=== PATIENT | male | born 1955 | race African-American/Black ===

== ENCOUNTER 2021-08-13 10:04 | Emergency (ER) | payer MEDICARE, MEDICAID, SELFPAY ==
[2021-08-13 10:50] VITALS: BP 156/94; PULSE 78; RESP 19; TEMP 37; O2SAT 97; BMI 28.8
--- NOTE | 2021-08-13 11:22 | HMH.EDUTC ---
[facility] [place] Clinical Impression: COVID-19 virus test result unknown Disposition: Home, Self-Care Condition on Discharge: Good Instructions: COVID-19: Testing and Tracing Additional Instructions: covid swab was sent to lab, call later tomorrow for results. self isolate until test results are known to be negative No sign of a bacterial infection. Likely viral. Viruses can take 7-14 days to run their course. Nasal saline and bulb syringe or nose Leora to remove nasal drainage to help with nasal congestion. Hard to eat, drink, sleep with nasal congestion so important to keep this cleaned out. Monitor temp. Tylenol or Motrin as needed for pain or fever Encourage fluids, water, Gatorade, Powerade, Pedialyte if /toddler/child Warm salt water gargles Warm fluids Sore throat lozenges Sleep elevated Humidifier/vaporizer Follow-up immediately for new or worsening symptoms or no noticeable improvement over the next 48-72 hours. Referrals: Francisco Bonilla [Primary Care Provider] - Time of Disposition: 11:25 Medical Decision Making - Phillip Inquiry Pt receiving controlled substance: No Vital Signs: 08/13/21 11:17 Temperature 98.6 F Temperature Source Oral Pulse Rate [Right Brachial] 78 Respiratory Rate 19 Blood Pressure [Right Arm] 156/94 H Blood Pressure Mean [Right Arm] 114 Blood Pressure Source [Right Arm] Automatic Cuff Blood Pressure Position [Right Arm] Sitting 02 Sat by Pulse Oximetry 97 Oxygen Delivery Method Room Air Orders (Tests/Meds): ORDERS Category Date Time Status Covid-19 Nasal PCR ([facility]) Routine Lab 08/13/21 11:20 Received [facility] [place] - General Chief complaint: Urgent Treatment Center Stated complaint: covid symptoms Time Seen by Provider: 08/13/21 11:22 Mode of Arrival: Ambulatory Source of Information: Patient Limitations: No Limitations Description of Symptoms (Recalled from Triage Doc. by RN): PATIENT C/O COUGH AND BODY ACHES SINCE THIS MORNING HEENT Symptoms (Recalled from RN notes): No Resp Symptoms (Recalled from RN notes): Yes Skin Symptoms (Recalled from RN notes): No MS Symptoms (Recalled from RN notes): No Functional Status (Recalled from RN notes): WNL - History of Present Illness Provider Complaint: 66 yr old male presnets for cough and body aches that started this am - Worker's Comp Is this a Worker's Comp case?: No [facility] History - Hepatitis A Screen Drug use history?: No High risk sexual behaviors?: No History of sexually transmitted infection?: No Currently employed?: No Childcare worker?: No Do you have indoor plumbing?: Yes Do you have electricity?: Yes Attestation statement:: This patient has been screened for Hepatitis A risk factors. I have reviewed the patient's past medical history: Yes ROS Obtained: Yes Systems reviewed as appropriate & no additional complaints - Constitutional Constitutional: Reports system reviewed and no additional complaints, except as docu, Reports body ache, Denies fatigue, Denies fever(s) - Eyes Eyes: Reports system reviewed and no additional complaints, except as docu, Denies blind spots - ENT Ears, Nose, Mouth, and Throat: Reports system reviewed and no additional complaints, except as docu, Reports nasal congestion, Denies sore throat - Cardiovascular Cardiovascular: Reports system reviewed and no additional complaints, except as docu, Denies chest pain - Respiratory Respiratory: Reports system reviewed and no additional complaints, except as docu, Reports cough - Gastrointestinal Gastrointestingal: Reports: system reviewed and no additional complaints, except as docu. Denies: abdominal pain - Musculoskeletal Musculoskeletal: Reports system reviewed and no additional complaints, except as docu, Denies joint pain - Integumentary/Breasts Skin/Breast: Reports system reviewed and no additional complaints, except as docu, Denies rash - Neurologic Neurologic: Reports system reviewed and no additional com
[2021-08-13 11:30] LABS: UTC Influenza A Antigen Negative (Negative); UTC Influenza B Antigen Negative (Negative)
[2021-08-13 11:32] VITALS: BP 130/86; PULSE 78; RESP 19; TEMP 37; O2SAT 97
== END 2021-08-13 12:25 | disposition home or self-care (01) ==
PROVIDERS: Emergency Provider Nurse Practitioner Family; PCP Family Medicine
DX: J02.9 Acute pharyngitis, unspecified (principal); R05.1 Acute cough; Z20.822 Contact with and (suspected) exposure to COVID-19
CPT/HCPCS: 87804; 99202; C9803; G0463; U0003; U0005

== ENCOUNTER 2025-06-04 16:22 | Outpatient (CLI) | payer MEDICARE, MEDICAID, SELFPAY ==
--- NOTE | 2025-06-04 16:25 | XR_ITS ---
FINAL REPORT CLINICAL HISTORY: cough,SOA pt states hx of respiratory infection FINDINGS: 2 views of the chest were obtained . The heart is normal in size. The mediastinum is within normal limits. The lungs are clear. There is no pneumothorax. Osseous structures are unremarkable. IMPRESSION: No acute cardiopulmonary process. Reviewed, Interpreted and Dictated by Ronda Mckeon MD Transcribed by Charissa Pete Authenticated and [facility]
--- OUTSIDE RECORDS SUMMARY | 2025-06-04 16:25 | XMS_ITS | Encounter Summary ---
Author Organization Healthcare Address [address] [place] [address] Care Team Providers Care Milieu Counselor Name Role Phone Guerita Abbasi FACTORY SUPERVISOR Primary Care Provider + Encounter Details Date Type Department Care Team ([facility] st Contact Info) Description 05/16/2023 Orders Only External Location [address] [place] [address] Provider, External Social History Tobacco Use Types Packs/Day Years Used Date Smoking Tobacco: Never Assessed Sex and Gender Information Value Date Recorded Sex Assigned at Not on file Legal Sex Male 10:32 AM EST Gender Identity Not on file Sexual Orientation Not on file documented as of this encounter Plan of Treatment Not on file documented as of this encounter Procedures Procedure Name Priority Date/Time Associated Diagnosis Comments CT NEURO OUTSIDE IMAGES 05/16/2023 6:03 PM EDT documented in this encounter Results * CT NEURO OUTSIDE IMAGES (05/16/2023 6:03 PM EDT) Anatomical Region Laterality Modality Computed Tomogra phy 05/16/2023 6:03 PM EDT us External Provider IMG CT PROCEDURES Final Result documented in this encounter Visit Diagnoses Not on filedocumented in this encounter Care Teams Milieu Counselor Relationship Specialty Start Date End Date Guerita Abbasi APRN [address] [place] [id number] PCP - General 01/01/25 documented as of this encounter
--- OUTSIDE RECORDS SUMMARY | 2025-06-04 16:25 | XMS_ITS | Clinical Summary ---
Author Organization Healthcare Address [address] [place] [address] Care Team Providers Care Planning Management It Specialist Name Role Phone Guerita Abbasi N [employer]AVING PLANT OPERATOR Primary Care Provider + Allergies No known active allergies Medications allopurinol (Zyloprim) 300 MG tablet Take 1 tablet by mouth daily. 10/26/2024 Active amLODIPine (Norvasc) 10 MG tablet Take 1 tablet by mouth daily. 12/22/2024 Active atorvastatin (Lipitor) 10 MG tablet Take 1 tablet by mouth. 12/29/2024 Active Farxiga 10 MG tablet Take 1 tablet by mouth daily. 10/25/2024 Active lisinopril-hydr oCHLOROthiazide 20-12.5 MG tablet Take 2 tablets by mouth daily. 10/26/2024 Active Social History Tobacco Use Types Packs/Day Years Used Date Smoking Tobacco: Never Smokeless Tobacco: Never Tobacco Cessation:Counseling Given: Not Answered Alcohol Use Standard Drinks/Week Comments Never 0 (1 standard drink = 0.6 oz pur e alcohol) Sex and Gender Information Value Date Recorded Sex Assigned at Not on file Legal Sex Male 10:32 AM EST Gender Identity Not on file Sexual Orientation Not on file Last Filed Vital Signs Vital Sign Reading Time Taken Comments Blood Pressure 108/66 01/01/2025 10:25 AM EDT Pulse - - Temperature - - Respiratory Rate - - Oxygen Saturation - - Inhaled Oxygen Concentration - - Weight 101 kg (221 lb 12.5 oz) 01/01/2025 10:25 AM EDT Height 185.4 cm (6' 1 ) 01/01/2025 10:25 AM EDT Body Mass Index 29.26 01/01/2025 10:25 AM EDT Plan of Treatment Health Maintenance Due Date Last Done Comments [facility]-Depression Screening 1955 [facility]-Hepatitis C Screening 1955 [facility]-Infant/Child/Adol SDOH Screenings 1955 [facility]- SDOH Screenings 1973 [facility]-Adult SDOH Screenings 1973 CT Colonography 2000 Colonoscopy 2000 FIT 2000 FOBT 2000 Sigmoidoscopy 2000 [facility]-Medicare Annual Wellness (AWV) 01/06/2025 01/07/2024, 10/05/2022, 07/21/2021 FIT-DNA 03/06/2025 03/06/2022 [facility]-Colorectal Cancer Screening 03/06/2025 [id number] Vaccine ( season) 2025 04/19/2024, 07/03/2023, 03/21/2023, Additional history exists [facility]-Influenza Vaccine (#1) 04/19/202505/08, 06/25/2023, 05/25/2022, Additional history exists [facility]-RSV Vaccine: 60+ Years or (1 - 1-dose 75+ series) 2030 [facility]-DTaP,Tdap,and Td Vaccines (2 - Td or Tdap) 02/19/2032 02/18/2022 [facility]-Zoster Vaccines Completed 02/02/2022, [facility]-Hepatitis A Vaccines Aged Out 10/05/2022 No longer eligible based on patient's age to complete this topic [facility]-Pneumococcal Vaccine: 50+ Years Completed 10/05/2022, 07/21/2021 [facility]-Obesity Intervention Completed 01/01/2025 HPV Vaccines Aged Out No longer eligi ble based on patient's age to complete this topic [facility]-HIB Vaccines Aged Out No longer e ligible based on patient's age to complete this topic [facility]-IPV Vaccines Aged Out No longer e ligible based on patient's age to complete this topic [facility]-Rotavirus Vaccines Aged Out No lo nger eligible based on patient's age to complete this topic Insurance [employer] Care Teams Planning Management It Specialist Relationship Specialty Start Date End Date Guerita Abbasi APRN [address] [place] [id number] PCP - General 01/01/25
--- OUTSIDE RECORDS SUMMARY | 2025-06-04 16:25 | XMS_ITS | Continuity of Care Document ---
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 The patient has a PMH of CKD. The patient presents to the clinic today for a medication refill. [email or web address] Not available 04/15/2025 08:58:52 Plan of Treatment Reminders Order Date Submit Date Provider Last Modified By Organization Details Last Modified Time Details Appointments OV EST 15 2024 08:15A M RAFAEL CERNA PA-C Not available Not available Not available OV EST 15 2024 09:45A M RAFAEL CERNA PA-C Not available Not available Not available Lab None recorded. Referral None recorded. Procedures lumbar radiofreq uency ablation (PROC) - Bilateral lumbar RFA at L1-L3. [address] and [address]. 2024 025 [id number] Herminio Gan, [address], [place], [address], 04/23/2025 08:40:32 Surgeries None recorded. Imaging None recorded. Medication Orders Medrol (Jewel) 4 mg tablets in a dose pack 2024 025 [facility] [place], [address], 05/25/2025 10:37:03 baclofen 10 mg tablet 2024 025 [facility] [address] [place], [address], 04/15/2025 09:00:35 Patient TargetsNo targets recorded. Patient Instructions Encounter Date Encounter Id Patient Instructions Last Modified By Organization Details Last Modified Time 04/15/2025 [id number] I have discussed in great detail our potential treatment options which would include a rehabilitative approach to care. This program would include medication management, Physical Therapy, consideration for interventional procedures as appropriate, and lifestyle modification (diet, weight loss, exercise, smoking/tobacco cessation, holistic approach including meditation and yoga). The patient understands and agrees prior to proceeding with this plan. _ __ __ __ __ __ __ __ __ __ __ __ __ __ __ __ __ __ __ __ __ __ __ __ __ __ __ __ _ RECORDS REVIEW: As per clinic policy, we will have the patient sign a release to obtain previous imaging and clinical notes. _ __ __ __ __ __ __ __ __ __ __ __ __ __ __ __ __ __ __ __ __ __ __ __ __ __ __ __ _ PSYCH: Pain affecting Neuro-psych behavior was discussed. Discussed about pain psychological counseling as a part of the multimodal approach to pain treatment. _ __ __ __ __ __ __ __ __ __ __ __ __ __ __ __ __ __ __ __ __ __ __ __ __ __ __ __ _ REHABILITATION: Discussed with the patient the importance of diet, daily physical activity and PT. Discussed with the patient the need to be scheduled for physical therapy since physical therapy will prolong the benefits of the procedure and interventions. _ __ __ __ __ __ __ __ __ __ __ __ __ __ __ __ __ __ __ __ __ __ __ __ __ __ __ __ _ I have reviewed patient's LINN report prior to prescribing Schedule II, III, and IV medications that require review by law. I counseled the patient extensively and informed of the respective risks/benefits of the procedure(s). The pertinent risks/benefits will be elaborated on and fully outlined in the informed consent. [place] PDMP reviewed and appropriate. UDS reviewed and consistent with current regimen. Controlled substance contract reviewed and signed line by line. Risks of medication therapy including respiratory depression, , and hazards of operating heavy machinery including automobiles discussed at length. Patient given information with six opioid/Controlled substance safety steps: 1. Never take a prescription pain medication unless it is prescribed for you. 2. Do not take pain medicine with alcohol. 3. Do not take more doses than prescribed. 4. Use with other sedative or anti-anxiety medications can be dangerous. 5. Avoid using prescription pain medication to help you fall asleep. 6. Lock up prescription pain medications. Opioid Contract Discussion: The patient was given a copy of the Clinic Prescription Drug Agreement and was counseled extensively regarding its contents. The patient is to take their pain medication exactly as prescribed. No increases in medications are to be without first contacting the office and explaining the reason behind the increase and getting approval to do so. The patient is not to obtain medications from other providers without first notifying the other provider what they obtain from this clinic and need to notify this clinic when they obtain pain medications from other providers. The patient is to bring their pain medications to each and every office visit for pill counts to monitor compliance for their safety. The patient is subject to periodic urine drug testing at the discretion of the provider as well as state and federal regulations. The patient was warned of the risks and benefits of taking opioid pain medication, the risk of addiction, the risk of withdrawal and the differences. [email or web address] Not available 04/15/2025 08:54:35 Reason for Referral None Reported. Problems Name Problem SNOMED Code Status Onset Date Resolution Date Notes Provider Name and Address Organization Details Recorded Time [employer] n 69780881 Active 2022 MARY Miller - [facility] - [place] & [place] 4 09:41:05 Chronic kidney disease stage 3 333604471 Active 2022 NERIS RAY PA-C [address] [place], [address], [place] - [facility] - [place] & [place] 5 07:48:57 Gout 49174189 Active 2022 Mikal Hernandez null, [place] - [facility] [place] & [place] 4 09:41:07 Erectile dysfunction 031152821 Active 2022 Mikal Hernandez null, [place] - [facility] [place] & [place] 4 09:41:02 Chronic kidney disease stage 3 due to type 2 diabetes mellitus 921383147496 Active 2023 Mikal Hernandez null, [place] - [facility] [place] [facility] [place] 4 09:41:00 Uncontrolle d type 2 diabetes mellitus 847541182 Active 2023 Mikal Hernandez null, [place] - [facility] [place] & [place] 4 09:41:10 Hyperlipide carrie 61179258 Active 2023 Mikal Hernandez null, [place] - [facility] [place] & [place] 5 09:54:31 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 999267891 Active 2024 Mikal Hernandez null, [place] - [facility] [place] & [place] 5 09:54:39 Cervical spondylosis 023977279 Active 2024 Mikal Hernandez null[place] - [facility] [place] [facility] [place] 5 09:54:21 Cervical radiculopat hy 34282039 Active 2024 NERIS RAY PA-C [address] [place] [address], [address], [place] - [facility] [place] & [place] 5 07:49:15 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 29729223 Active 2024 NERIS RAY PA-C [address] [place], [address], [place] - [facility] [place] & [place] 5 07:48:52 Lumbar spondylosis 577145053 Active 2024 PATRIC AVILA DO [address] [place] [address], [address], [place] - [facility] - [place] & [place] 5 08:31:02 Myofascial pain 332477824 Active 2024 PATRIC AVILA [address], [address], [place] - [facility] [place] & [place] 5 08:33:29 Compression fracture of lumbar spine 284466842 Active 2024 PATRIC AVILA [address], [address] [place] [address] 1, [place] - [facility] [place] & [place] 5 09:41:10 Claustropho cal 13671357 Active 2024 PATRIC AVILA [address], [address] [place] [address] 1, [place] [facility] [place] & [place] 5 13:02:42 Spinal stenosis in cervical region 46184080 Active 2024 NERIS RAY PA-C [address] [place] [address], [address] [place] [address] 1, [place] [facility] [place] & [place] 5 07:47:31 Pain in thoracic spine 765935731 Active 2024 NERIS RAY PA-C [address] [place] [address], [address] [place] [address] 1, [place] [facility] [place] & [place] 5 07:47:40 Neck pain 38997809 Active 2024 NERIS RAY PA-C [address] [place] [address], [address] [place] [address] 1, [place] - [facility] [place] & [place] 5 07:48:01 Problem Notes None recorded. Procedures Surgical History Date Name Laterality Status Provider Name and Address Organization Details Recorded Time 03/18/20 25 Injection Only completed NERIS RAY PA-C [address] [place] [address], [phone], [place] - [facility] [place] & [place] 03/18/2025 16:46:47 02/12/20 25 TPI Karen JAMESON,R completed Samia Broussard [place] - [facility] - [place] & [place] 02/11/2025 09:39:28 01/07/20 24 Medicare Annual Wellness Visit Health Risk Assessment completed Mikal Hernandez [facility] & [place] 01/07/2024 08:04:47 08/19/19 15 Hip Surgery completed Los Bui [facility] & [place] 08/14/2023 15:45:18 radiofrequency ablation of peripheral nerve using fluoroscopic guidance completed Mikal Hernandez [facility] [place] 05/25/2025 10:31:44 Imaging Results None recorded. Procedure Notes None recorded. Medical Equipment None Reported. Allergies Allergen ID Allergen Name Allergen Category Reaction Reaction Severity Criticality Documentation Date Start Date Code Code System Note Provider Name and Address Organization Details Recorded Time 691949 No known allergy (situatio n) Not available Not available Not available Not available 12/22/2024 58608 6003 SNOMED Oliva Colon null, [facility] & [place] 13:33:48 102133 tramadol medicatio n Not available Not available Not available 05/25/2025 11446 RxNorm twitc kurt WOOD NP [address] [place] [address], [address] [place] [address] & [place] 13:05:53 Medications Name Sig Start Date Stop Date Status Note LastModified by Organization Details LastModified Time Prescriptio n - Clarificati on 01/15 completed Not Available Not Available Not Available promethazin e-DM 6.25 mg-15 mg/5 mL oral syrup TAKE 5 ML BY MOUTH EVERY 4 HOURS NEEDED FOR COUGH (DO NOT EXCEED 4 DOSES PER DAY) 05/08 completed Not Available Not Available Not Available doxycycline hyclate 100 mg capsule TAKE 1 CAPSULE BY MOUTH TWICE DAILY FOR 7 DAYS 05/08 completed Not Available Not Available Not Available atorvastati n 20 mg tablet TAKE 1 TABLET BY MOUTH ONCE DAILY 10/09 completed Not Available Not Available Not Available atorvastati n 10 mg tablet Take 1 tablet by mouth once daily 2024 active Not Available Not Available Not Avai lable lisinopril 20 mg-hydrochl orothiazide 12.5 mg tablet TAKE 2 TABLETS BY MOUTH ONCE DAILY active Not Available Not Available No t Available azithromyci n 250 mg tablet 07/23 completed Not Available Not Available Not Available hydrocodone 5 mg-acetamin ophen 325 mg tablet TAKE 1 TABLET BY MOUTH ONCE DAILY NEEDED FOR 30 DAYS active Not Available Not Available No t Available prednisone 20 mg tablet 2 tablets daily for 5 days 01/06 completed Not Available Not Available Not Available amlodipine 5 mg tablet TAKE 1 TABLET BY MOUTH EVERY DAY 05/08 completed Not Available Not Available Not Available allopurinol 100 mg tablet 05/08 completed Not Available Not Available Not Available tramadol 50 mg tablet TAKE 1 TABLET BY MOUTH EVERY 12 HOURS NEEDED FOR SEVERE PAIN 05/25 completed Not Available Not Available Not Available sildenafil 100 mg tablet TAKE DIRECTED ONCE IN 24 HOURS NEEDED active Not Available Not Available No t Available alprazolam 0.25 mg tablet TAKE ONE TABLET AT 8 AM AND ANOTHER RIGHT BEFORE TESTING AT 9 AM 10/06 completed Not Available Not Available Not Available famotidine 20 mg tablet 07/23 completed Not Available Not Available Not Available baclofen 10 mg tablet Take 1 tablet every 8 hours by oral route as needed for 30 days. 2024 active Not Available Not Available Not Avai lable amlodipine 10 mg tablet Take 1 tablet by mouth once daily 2024 active Not Available Not Available Not Avai lable triamcinolo ne acetonide 40 mg/mL suspension for injection Take 40 mg by injection route. 09/15 completed Not Available Not Available Not Available prednisone 50 mg tablet TAKE 1 TABLET BY MOUTH ONCE DAILY FOR 5 DAYS 05/08 completed Not Available Not Available Not Available allopurinol 300 mg tablet TAKE 1 TABLET BY MOUTH ONCE DAILY active Not Available Not Available No t Available diclofenac sodium 50 mg tablet,sallie yed release 07/23 completed Not Available Not Available Not Available dexamethaso ne sodium phosphate 4 mg/mL injection solution Inject 1 mL by intramusc ular route. 09/15 completed Not Available Not Available Not Available diazepam 10 mg tablet TAKE 1 TABLET BY MOUTH DIRECTED FOR 1 DAY FOR LUMBAR MRI 05/25 completed Not Available Not Available Not Available levofloxaci n 500 mg tablet 11/01 completed Not Available Not Available Not Available methylpredn isolone 4 mg tablets in a dose pack TAKE BY MOUTH DIRECTED ON INSIDE OF PACKAGE 05/25 completed Not Available Not Available Not Available albuterol sulfate HFA 90 mcg/actuati on aerosol inhaler INHALE 2 PUFFS BY MOUTH 4 TIMES DAILY FOR 10 DAYS 05/08 completed Not Available Not Available Not Available colchicine 0.6 mg tablet 07/23 completed Not Available Not Available Not Available fluticasone propionate 50 mcg/actuati on nasal spray,suspe nsion USE 1 SPRAY IN EACH NOSTRIL DAILY active Not Available Not Available No t Available metformin ER 500 mg tablet,exte nded release 24 hr TAKE 1 TABLET BY MOUTH ONCE DAILY 10/09 completed Not Available Not Available Not Available amoxicillin 875 mg-potassiu m clavulanate 125 mg tablet 07/23 completed Not Available Not Available Not Available duloxetine 30 mg capsule,del ayed release Take 1 capsule every day by oral route for 90 days. 2024 active Not Available Not Available Not Avai lable cholecalcif pal (vitamin D3) 50 mcg (2,000 unit) capsule TAKE 1 CAPSULE BY MOUTH ONCE DAILY active Not Available Not Available No t Available Farxiga 10 mg tablet TAKE 1 TABLET BY MOUTH ONCE DAILY active Not Available Not Available No t Available Vitals Date Recorded Body height Body mass index (BMI) Body weight Body temperature Oxygen saturation Oxygen saturation in Arterial blood by Pulse oximetry Heart rate Systolic And Diastolic Provider Name and Address Organization Details Last Updated DateTime 5 185.42 cm 28.5 kg/m2 16285.9 5 g 97.3 [degF] 97 % 97 % 80 /min 122/70 mm[Hg] Hernán Acevedo [facility] [place] 5 08:30:35 Social History Question Answer Notes LastModified by Organizat ion Details LastModified Time Tobacco Smoking Status Former Smoker Los trevino, [facility] [place] 08/14/2023 15:45:18 Do You Have An Advance Directive? No [email or web address] Information not available 08/14/2023 Do You Wear A Helmet When Biking? Yes [email or web address] Information not available 11/05/2023 Are You Blind Or Do You Have Difficulty Seeing? No [email or web address] Information not available 08/14/2023 Is Blood Transfusion Acceptable In An Emergency? No Information not available 11/05/2023 What Is Your Level Of Caffeine Consumption? Occasional [email or web address] Information not available 01/07/2024 In The 14 Days Before Symptom Onset, Have You Had Close Contact With A Laboratory-confir med COVID-19 While That Case Was Ill? No [email or web address] Information not available 11/05/2023 In The 14 Days Before Symptom Onset, Have You Had Close Contact With A Person Who Is Under Investigation For COVID-19 While That Person Was Ill? No [email or web address] Information not available 11/05/2023 Have You Been To An Area Known To Be High Risk For COVID-19? No [email or web address] Information not available 11/05/2023 Are You Deaf Or Do You Have Serious Difficulty Hearing? No Information not available 11/05/2023 What Type Of Diet Are You Following? REGULAR [email or web address] Information not available 11/05/2023 Have You Processed Blood Or Body Fluids From An Ebola Virus Disease Patient Without Appropriate PPE? No [email or web address] Information not available 11/05/2023 Do You Reside In Or Have You Traveled To An Area Where Ebola Virus Transmission Is Active? No [email or web address] Information not available 11/05/2023 Have There Been Any Changes To Your Family Or Social Situation? No [email or web address] Information no t available 11/05/2023 What Is The Fluoride Status Of Your Home? Unknown [email or web address] Information not available 11/05/2023 Are There Any Guns Present In Your Home? No [email or web address] Information not available 11/05/2023 Have You Recently Or Are You Planning To Travel To An Area With Zika Virus? No [email or web address] Information not available 11/05/2023 Do You Use Insect Repellent Routinely? Yes Information not available 11/05/2023 Do You Feel Safe At Home? Yes [email or web address] Information not available 11/05/2023 Do You Have A Medical Power Of Roll Coverer? No [email or web address] Information not available 11/05/2023 What Was The Date Of Your Most Recent Tobacco Screening? 05/25/2025 Information not available 05/25/2025 Do You Have Any Pets? No [email or web address] Information not available 11/05/2023 Do You Use Your Seat Belt Or Car Seat Routinely? Yes [email or web address] Information not available 11/05/2023 Do You Have Smoke And Carbon Monoxide Detectors In Your Home? No Information not available 11/05/2023 Are You Passively Exposed To Smoke? No [email or web address] Information no t available 11/05/2023 How Much Tobacco Do You Smoke? 1 PPD Information not available 08/14/2023 Do You Use Sunscreen Routinely? Yes [email or web address] Information not available 11/05/2023 Has Tobacco Cessation Counseling Been Provided? Yes [email or web address] Information not available 01/15/2025 On What Date Was Tobacco Cessation Counseling Provided? 05/25/2025 [email or web address] Information not available 05/25/2025 How Many Years Have You Smoked Tobacco? 20 [email or web address] Information not available 08/14/2023 Do You Have Difficulty Walking Or Climbing Stairs? No [email or web address] Information not available 11/05/2023 Are You Currently In School? No [email or web address] Information not available 11/05/2023 Sex: Unknown Functional Status Question Answer Note LastModified by Organizat ion Details LastModified Time Do you use any illicit or recreational drugs? No [email or web address] Information not available 08/14/2023 Do you or have you ever used any other forms of tobacco or nicotine? No [email or web address] Information not available 01/07/2024 What is your level of alcohol consumption? None [email or web address] Information not available 08/14/2023 Are you currently employed? Yes [email or web address] Information not available 11/05/2023 Do you have transportation difficulties? No [email or web address] Information not available 11/05/2023 Are you able to walk independently without assistance or assistive devices? YESWOREST [email or web address] Information not available 11/05/2023 Do you have difficulty doing errands alone? No [email or web address] Information not available 11/05/2023 Are you able to care for yourself independently? Yes [email or web address] Information not available 11/05/2023 Do you have difficulty dressing, bathing, grooming, or toileting? No [email or web address] Information not available 11/05/2023 What is your exercise level? Moderate [email or web address] Information not available 08/14/2023 Mental Status Question Answer Note LastModified by Organizat ion Details LastModified Time Do you feel stressed (tense, restless, nervous, or anxious, or unable to sleep at night)? [id number] [email or web address] Information not available 08/14/2023 Do you have difficulty concentrating, remembering or making decisions? No [email or web address] Information no t available 11/05/2023 Family History Relationship Description Onset Age of this Age Resolved Age Notes LastModified by Organization Details LastModified Time Mother Hypertensive disorder [email or web address] Not available 2023 16:23:09 Sister Diabetes mellitus [email or web address] Not available 2024 10:11:24 Medical History Condition Response Gout Y Kidney or Bladder Problems Y Diabetes Y High Cholesterol Y Hypertension Y Immunizations Vaccine Type Date Status Note Provider Nam e and Address Organization Details Recorded Time zoster recombinant 2 completed Oliva Colon null, [place] - [facility] - [place] & [place] 04/28/2025 14:00:22 zoster recombinant 2 completed Oliva Colon null[place] [facility] [place] 04/28/2025 14:00:22 Influenza, high-dose, quadrivalent, PF 2 completed Aye [place] null, [place] - [facility] & [place] 10/20/2023 15:02:37 Influenza, adjuvanted, quadrivalent, PF 1 completed Oliva Colon [place] [facility] [place] [facility] [place] 04/28/2025 14:00:22 Influenza, adjuvanted, quadrivalent, PF 3 completed Aye [place] [facility] [place] [facility] [place] 10/20/2023 15:02:37 COVID-19, mRNA, LNP-S, PF, 100 mcg/0.5mL dose or 50 mcg/0.25mL dose 2 completed Oliva Colon [place] [facility] [place] & [place] 04/28/2025 14:00:22 COVID-19, mRNA, LNP-S, PF, 100 mcg/0.5mL dose or 50 mcg/0.25mL dose 2 completed Oliva Colon null, [place] - [facility] & [place] 04/28/2025 14:00:22 COVID-19, mRNA, LNP-S, PF, 100 mcg/0.5mL dose or 50 mcg/0.25mL dose 1 completed Oliva Colon null, [facility] & [place] 04/28/2025 14:00:22 COVID-19, mRNA, LNP-S, PF, 100 mcg/0.5mL dose or 50 mcg/0.25mL dose 1 completed Oliva Colon null, [facility] [place] 04/28/2025 14:00:22 COVID-19 vaccine, vector-nr, [id number], PF, 0.5 mL 1 completed Oliva Colon null, [facility] & [place] 04/28/2025 14:00:22 Pneumococcal conjugate PCV20, polysaccharide [id number] conjugate, adjuvant, PF 3 completed Oliva Colon null, [facility] & [place] 04/28/2025 14:00:22 COVID-19, mRNA, LNP-S, bivalent, PF, 50 mcg/0.5 mL or 25mcg/0.25 mL dose 3 completed Aye [place] null, [facility] & [place] 10/20/2023 15:02:37 COVID-19, mRNA, LNP-S, bivalent, PF, 50 mcg/0.5 mL or 25mcg/0.25 mL dose 2 completed Oliva Colon null, [facility] & [place] 04/28/2025 14:00:22 COVID-19, mRNA, LNP-S, PF, 50 mcg/0.5 mL 3 completed Aye [place] null, [facility] & [place] 10/20/2023 15:02:37 pneumococcal polysaccharide PPV23 1 completed Oliva Colon null, [facility] & [place] 04/28/2025 14:00:22 Tdap 2 completed Oliva Colon [place], [place] [facility] [place] [facility] [place] 04/28/2025 14:00:22 Hep B, adult 3 completed Oliva Colon [place] [facility] [place] [facility] [place] 04/28/2025 14:00:22 Hep B, adult 3 completed Oliva Colon [place] [facility] [place] [facility] [place] 04/28/2025 14:00:22 Influenza, split virus, quadrivalent, PF 0 completed Oliva Colon [place] [facility] [place] [facility] [place] 04/28/2025 14:00:22 Hep A-Hep B 3 completed Oliva Colon [place] [facility] [place] [facility] [place] 04/28/2025 14:00:22 COVID-19, mRNA, LNP-S, PF, vinay-sucrose, 30 mcg/0.3 mL 4 completed Oliva Colon [place] [facility] [place] [facility] [place] 04/28/2025 14:00:22 Influenza, high-dose, trivalent, PF 4 completed Oliva Colon null[place] [facility] & [place] 04/28/2025 14:00:22 COVID-19, mRNA, LNP-S, PF, 50 mcg/0.5 mL 5 completed Not Available [facility] 05/25/2025 10:12:35 Past Encounters Encounter ID Performer Location Encounter Start Date Encounter Closed Date Diagnosis/Indication Diagnosis SNOMED-CT Code Diagnosis ICD10 Code Diagnosis IMO Codes Diagnosis Note [id number] NERIS RAY PA-C [facility] [address] [place] [address] 03/18/2025 08:47:10 03/18/2025 09:42:48 Stenosis of spinal canal due to intervertebral disc 501497324 M99.51 Ossificati on of posterior longitudinal ligament 47538134 M48.8X2 Chronic ki dney disease stage 3 659429256 N18.30 Lumbar spondylosis 02983 0009 M47.896 - The patient is scheduled on 03/22/25 for the second bilateral lumbar medial branch block at L1-L3. Compressio n fracture of lumbar spine 944099960 S32.040D [id number] Spasm 73774253 M62.838 48994 - Refill Baclofen 10 mg Q8 hours prn Pain of le ft shoulder region 8478921925 M25.512 [id number] Neck pain 59048237 M54.2 33774 - I have reviewed the cervical x-ray (08/2024), which revealed moderate degenerati ve disc disease; disc space narrowing at C5-C6.- I have reviewed the cervical MRI (08/2024), which revealed severe degenerati ve disc disease; severe posterior longitudin al ligament thickening ; severe spinal cord narrowing from C3-C5. Lumbago with sciatica 20 8258556 M54.40 [id number] - I have reviewed the lumbar x-ray (01/2025), which revealed severe degenerati ve disc disease; facet hypertroph y; disc space narrowing from L1-S1; possible L4 and L5 vertebral body compressio n.- If pain worsens, I will likely order a lumbar MRI. Subacromia l bursitis of left shoulder [id number] M75.52 [id number] - The patient complains of left shoulder pain, which worsens with abduction. - The patient has attempted to make lifestyle modificati ons, but pain continues to impede performing ADLs, thereby negatively affecting quality of life. I think the patient is a good candidate for interventi onal treatment, as their pain has been refractory to conservati ve (PT and/or physician- directed at-home exercises/ stretches) and pharmacolo gic approaches .- I will proceed with performing a left subacromia l bursa injection in clinic today. Pain in th oracic spine 047374293 M54.6 58853 - I have reviewed the thoracic x-ray (01/2025), which revealed spondylosi s; degenerati ve disc disease. Long-term current use of opiate analgesic drug [id number] 99357 Z79.891 756324 - The patient takes Hydrocodon e/APAP 5-325 mg once daily prn (20 tablets monthly) with good benefit and tolerabili ty, which I will refill. I will discuss the medication refill with Dr. Gan, whom will review and sign the order.- The patient notes that Tramadol is intolerabl e due to side effects (involunta ry movements) .- I had a detailed discussion with the patient regarding treatment modalities and the respective risks/bene fits. I educated the patient on the dangers/ri sks of long-term oral opioids, particular ly with increasing age, these risks include respirator y depression , not excluding . I informed the patient that the goal of [facility] will be to incorporat e a multi-moda l approach to pain management , which may consist of conservati ve, pharmacolo gic, and interventi onal approaches , ultimately decreasing pain and increasing function with focus on both safety and efficacy. Cervical radiculopathy [id number] M54.2 M54.12 717980 - I may order an EMG/NCS of the RUE to gain further insight into etiology/p athology. Spinal damian nosis in cervical region 38736335 M99.51 - The patient is S/P (01/2025) cervical epidural, which was successful in decreasing radicular neck pain by greater than 50%. 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 Patient states he received significan t benefit of >80% reduction in pain for 10 hours following his second block.- Due to the success of both blocks, I will proceed with scheduling a lumbar RFA L1-L3. The procedure will be fluoroscop y-guided.- Follow up 6 weeks post RFA. Compressio n fracture of lumbar spine 709200003 S32.040D [id number] Spasm 38297960 M62.838 13132 - Continue PO Baclofen 10 mg Q8 hours prn Pain of le ft shoulder region 4429208390 M25.512 38138328 Neck pain 01859388 M54.2 30975 - I have reviewed the cervical x-ray (08/2024), which revealed moderate degenerati ve disc disease; disc space narrowing at C5-C6.- I have reviewed the cervical MRI (08/2024), which revealed severe degenerati ve disc disease; severe posterior longitudin al ligament thickening ; severe spinal cord narrowing from C3-C5. Lumbago with sciatica 20 4634084 M54.40 24147727 - I have reviewed the lumbar x-ray (01/2025), which revealed severe degenerati ve disc disease; facet hypertroph y; disc space narrowing from L1-S1; possible L4 and L5 vertebral body compressio n.- If pain worsens, I will likely order a lumbar MRI. Subacromia l bursitis of left shoulder [id number] 768061 M75.52 21280460 - The patient complains of left shoulder pain, which worsens with abduction. - The patient has attempted to make lifestyle modificati ons, but pain continues to impede performing ADLs, thereby negatively affecting quality of life. I think the patient is a good candidate for interventi onal treatment, as their pain has been refractory to conservati ve (PT and/or physician- directed at-home exercises/ stretches) and pharmacolo gic approaches .- S/p Left subacromia l bursa injection on 03/18/25- successful in decreasing 100% of pain and providing with improved ROM. Pain in th oracic spine 871277458 M54.6 78176 - I have reviewed the thoracic x-ray (01/2025), which revealed spondylosi s; degenerati ve disc disease. Long-term current use of opiate analgesic drug [id number] 60978 Z79.891 598956 - The patient takes Hydrocodon e/APAP 5-325 mg once daily prn (20 tablets monthly) with good benefit and tolerabili ty, which I will refill. I will discuss the medication refill with Dr. Gan, whom will review and sign the order.- The patient notes that Tramadol is intolerabl e due to side effects (involunta ry movements) .- I had a detailed discussion with the patient regarding treatment modalities and the respective risks/bene fits. I educated the patient on the dangers/ri sks of long-term oral opioids, particular ly with increasing age, these risks include respirator y depression , not excluding . I informed the patient that the goal of [facility] will be to incorporat e a multi-moda l approach to pain management , which may consist of conservati ve, pharmacolo gic, and interventi onal approaches , ultimately decreasing pain and increasing function with focus on both safety and efficacy. Cervical radiculopathy 90176752 M54.2 M54.12 226660 - I may order an EMG/NCS of the RUE to gain further insight into etiology/p athology. Spinal damian nosis in cervical region 06252834 M99.51 - The patient is S/P (01/2025) cervical epidural, which was successful in decreasing radicular neck pain by greater than 50%. 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 I think the patient is a good candidate for interventi onal treatment, as their pain has been refractory to conservati ve (PT and/or physician- directed at-home exercises/ stretches) and pharmacolo gic approaches .- Considerin g the patient received significan t (greater than 80% pain relief) benefit in the short-term (at least 6 hours) from a block on two separate occasions, I will proceed with scheduling a lumbar RFA. The procedure will be fluoroscop y-guided. Compressio n fracture of lumbar spine 497638037 S32.040D [id number] Spasm 78250526 M62.838 40483 - Refill Baclofen 10 mg Q8 hours prn Pain of le ft shoulder region 0680240850 M25.512 96901448 - The previous complaint of left shoulder pain has resolved. Neck pain 36976314 M54.2 51014 - I have reviewed the cervical x-ray (08/2024), which revealed moderate degenerati ve disc disease; disc space narrowing at C5-C6.- I have reviewed the cervical MRI (08/2024), which revealed severe degenerati ve disc disease; severe posterior longitudin al ligament thickening ; severe spinal cord narrowing from C3-C5. Lumbago with sciatica 20 7238818 M54.40 01452967 - I have reviewed the lumbar x-ray (01/2025), which revealed severe degenerati ve disc disease; facet hypertroph y; disc space narrowing from L1-S1; possible L4 and L5 vertebral body compressio n.- I have reviewed the lumbar MRI, which revealed multilevel degenerati ve chnges; facet arthropath y. Subacromia l bursitis of left shoulder [id number] 782806 M75.52 08059043 - The patient is S/P (03/18/25) left subacromia l bursa injection, which was successful in decreasing left shoulder pain by nearly 100%. Pain in th oracic spine 062046499 M54.6 45191 - I have reviewed the thoracic x-ray (01/2025), which revealed spondylosi s; degenerati ve disc disease. Long-term current use of opiate analgesic drug [id number] 08312 Z79.891 241897 - The patient takes Hydrocodon e/APAP 5-325 mg once daily prn with good benefit and tolerabili ty, which I will refill. I will discuss the medication refill with Dr. Gan, whom will review and sign the order.- The patient notes that Tramadol is intolerabl e due to side effects (involunta ry movements) .- The patient has limited (no NSAIDs) medication options due to renal function. I advised the patient to be mindful of Acetaminop hen use too. Cervical radiculopathy 59513425 M54.2 M54.12 838802 - I may order an EMG/NCS of the RUE to gain further insight into etiology/p athology. Spinal damian nosis in cervical region 16005527 M99.51 - The patient is S/P (01/2025) cervical epidural, which was successful in decreasing radicular neck pain by greater than 50%. Myofascial pain 34231618 9 M79.18 698102 - The patient complains of low back pain described as tightness/ spasm, which was exacerbate d recently.- In effort to reduce inflammati on, I will prescribe a Medrol dose pack. Health Concerns Section Related Observation LastModified by Organization Detai ls LastModified Time None Recorded Concern Status LastModified by Organization Details LastModified Time None Recorded Payers Encounter Date Sequence Insurance Name Policy Number Policy Freeman Covered Member ID Freeman Member ID Guarantor Name 04/15/2025 1 [employer] (MEDICARE REPLACEMENT/ ADVANTAGE - HMO) Patric Irizarry [id number] Patric Irizarry 04/15/2025 2 [place] [employer] CHO[employer] - FFS/TRADITIO NAL Patric Antonella Irizarry [id number] Patric Irizarry Notes Date Note Type Note Provider Name and Address Organization Details Recorded Time 04/15/2025 text/html ROS as noted in the HPI 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 The patient has a PMH of CKD. The patient presents to the clinic today for a medication refill. The patient states that the current medication regimen is effective and well-tolerable, thereby allowing them to remain functional. The patient complains of low back pain described as tightness/spasm, which was exacerbated recently. The patient states that his low back is locking up. The patient states that he is awaiting approval of a bilateral lumbar RFA at L1-L3. Today the pain level is a 8/10. NERIS RAY PA-C [address] [place] [address], [phone], [facility] - [place] & [place] 04/15/2025 09:01:20
--- OUTSIDE RECORDS SUMMARY | 2025-06-04 16:25 | XMS_ITS | Encounter Summary ---
Author Organization Healthcare Address [address] [place] [address] Care Team Providers Care Cutting And Creasing Press Operator Name Role Phone Guerita Abbasi ORDER ENTRY CLERK Primary Care Provider + Encounter Details Date Type Department Care Team ([facility] st Contact Info) Description 09/16/2024 Orders Only External Location [address] [place] [address] Provider, External Social History Tobacco Use Types [...] Procedure Name Priority Date/Time Associated Diagnosis Comments MR NEURO OUTSIDE IMAGES 09/16/2024 9:48 AM EST documented in this encounter Results * MR NEURO OUTSIDE IMAGES (09/16/2024 9:48 AM EST) Anatomical Region Laterality Modality Magnetic Resonan ce 09/16/2024 9:48 AM EST us External Provider IMG MRI PROCEDURES Final Resul t documented in this encounter Visit Diagnoses Not on filedocumented in this encounter Care Teams Cutting And Creasing Press Operator Relationship Specialty Start Date End Date Guerita Abbasi APRN [address] [place] [address] PCP - General 01/01/25 documented as of this encounter
--- OUTSIDE RECORDS SUMMARY | 2025-06-04 16:25 | XMS_ITS | Encounter Summary ---
[facility] Address [address] [place] [address] Care Team Providers Care Rock Crusher Name Role Phone Francisco Bonilla MD Primary Care Provider [phone] Reason for Visit * Reason Comments Med Refill Encounter Details Date Type Department Care Team (Late st Contact Info) Description 05/23/2022 Refill [facility] [address] [place] [address] Francisco Bonilla MD [address] [place] [address] Essential hypertension Social History Tobacco Use Types Packs/Day Years Used Date Smoking Tobacco: Light Smoker Cigarettes 09 12 Started: 980; Last attempted to quit: 08/24/2004 Smokeless Tobacco: Never Alcohol Use Standard Drinks/Week Comments Not Currently 5 (1 standard drink = 0.6 oz pur e alcohol) PHQ-2 Answer Date Recorded Retired Total Score 0 07/21/2021 Sex and Gender Information Value Date Recorded Sex Assigned at Not on file Legal Sex Male 10:28 AM EDT Gender Identity Not on file Sexual Orientation Not on file documented as of this encounter Plan of Treatment Not on file documented as of this encounter Visit Diagnoses Diagnosis Essential hypertension Unspecified essential hypertension documented in this encounter Care Teams Rock Crusher Relationship Specialty Start Date End Date Francisco Bonilla MD [address] [place] [address] PCP - General Family Medicine 01/09/21 documented as of this encounter
--- OUTSIDE RECORDS SUMMARY | 2025-06-04 16:25 | XMS_ITS | Encounter Summary ---
Author Organization Healthcare Address [address] [place] [address] Care Team Providers Care Chute Worker Name Role Phone Guerita Abbasi BUILDING COMPONENTS DESIGNER Primary Care Provider + Encounter Details Date Type Department Care Team ([facility] st Contact Info) Description 09/08/2024 Orders Only External Location [address] [place] [address] Provider, External Social History Tobacco Use Types [...] Procedure Name Priority Date/Time Associated Diagnosis Comments XR OUTSIDE IMAGES 09/08/2024 10:13 AM EST documented in this encounter Results * XR OUTSIDE IMAGES (09/08/2024 10:13 AM EST) Anatomical Region Laterality Modality Radiographic Debi ging 09/08/2024 10:1 3 AM EST us External Provider IMG XR PROCEDURES Final Result documented in this encounter Visit Diagnoses Not on filedocumented in this encounter Care Teams Chute Worker Relationship Specialty Start Date End Date Guerita Abbasi APRN [address] [place] [address] PCP - General 01/01/25 documented as of this encounter
--- OUTSIDE RECORDS SUMMARY | 2025-06-04 16:25 | XMS_ITS | Continuity of Care Document ---
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 The patient has a PMH of CKD. The patient is following up after a lumbar RFA, which was successful in decreasing low back pain by nearly 100%. PLAN: - Refill prescriptions for Lortab and Baclofen for one month. Patric is advised to take the medications sparingly and monitor his symptoms over the next month. The patient takes Hydrocodone/APAP 5-325 mg once daily prn with good benefit and tolerability, which I will refill. I will discuss the medication refill with Dr. Gan, whom will review and sign the order. The patient notes that Tramadol is intolerable due to side effects (involuntary movements). The patient has limited (no NSAIDs) medication options due to renal function. I advised the patient to be mindful of Acetaminophen use too. - Discussed the option of a fluoroscopic-torri ded injection for the left shoulder with Dr. Gan if the pain persists or worsens. This procedure would allow precise placement of medication into the glenohumeral joint and surrounding musculature. Patric prefers to wait and see if his symptoms improve before scheduling this intervention. - Patric is encouraged to call the clinic if his symptoms worsen before his next appointment. Follow-up is planned in one month to reassess his condition and determine the need for further treatment. Please note this report was created using voice recognition/text compilation software documentation services during the encounter with the patient. [email or web address] Not available 05/17/2025 07:49:34 Plan of Treatment Reminders Order Date Submit Date Provider Last Modified By Organization Details Last Modified Time Details Appointments OV EST 15 2024 08:15A M RAFAEL CERNA PA-C Not available Not available Not available OV EST 15 2024 09:45A M RAFAEL CERNA PA-C Not available Not available Not available Lab None recorded. Referral None recorded. Procedures None recorded. Surgeries None recorded. Imaging None recorded. Medication Orders baclofen 10 mg tablet 2024 [id number] [facility], [address] [place], [place], [facility], 05/17/2025 07:49:42 Patient TargetsNo targets recorded. Patient Instructions Encounter Date Encounter Id Patient Instructions Last Modified By Organization Details Last Modified Time 05/13/2025 [id number] I have discussed in great detail our [...] the risk of withdrawal and the differences. [email or web address] Not available 05/12/2025 09:26:12 Reason for Referral None Reported. Problems Name Problem SNOMED Code Status Onset Date Resolution Date Notes Provider Name and Address Organization Details Recorded Time Essential hypertensio n 33314859 Active 2022 Mikal Hernandez null, [place] [facility] [place] & [place] 4 09:41:05 Chronic kidney disease stage 3 965655296 Active 2022 NERIS RAY PA-C [address] [place], [address] [facility] [place] [facility] [place] & [place] 5 07:48:57 Gout 61999806 Active 2022 Mikal [place] null, [place] [facility] [place] & [place] 4 09:41:07 Erectile dysfunction 808939358 Active 2022 Mikal Hernandez [place] [facility] [place] 4 09:41:02 Chronic kidney disease stage 3 due to type 2 diabetes mellitus 813732175078 Active 2023 Mikal [place] [facility] [place] 4 09:41:00 Uncontrolle d type 2 diabetes mellitus 262216332 Active 2023 Mikal Hernandez [place] [facility] [place] 4 09:41:10 Hyperlipide carrie 74348266 Active 2023 Mikal [place] [facility] [place] 5 09:54:31 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 665067540 Active 2024 Mikal [place] [facility] [place] 5 09:54:39 Cervical spondylosis 887176709 Active 2024 Mikal [place] [facility] [place] 5 09:54:21 Cervical radiculopat hy 94384010 Active 2024 NERIS RAY PA-C [address] [place] [address], [address] [place] [address], [place] [facility] [place] 5 07:49:15 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 87187063 Active 2024 NERIS RAY PA-C [address] [place] [address], [address] [place] [address] 1, [place] [facility] [place] & [place] 5 07:48:52 Lumbar spondylosis 077023352 Active 2024 PATRIC AVILA [place] [address], [place] [facility] [place] & [place] 5 08:31:02 Myofascial pain 166723533 Active 2024 PATRIC AVILA [place] [address], [place] [facility] [place] & [place] 5 08:33:29 Compression fracture of lumbar spine 635228004 Active 2024 PATRIC AVILA [place] [address], [place] [facility] [place] & [place] 5 09:41:10 Claustropho cal 40399846 Active 2024 PATRIC AVILA [place] [address], [place] [facility] [place] 5 13:02:42 Spinal stenosis in cervical region 48619644 Active 2024 NERIS RAY PA-C [address] [place] [address] 1, [place] [facility] [place] & [place] 5 07:47:31 Pain in thoracic spine 547783026 Active 2024 NERIS RAY PA-C [address] [place] [address] 1, [place] [facility] [place] & [place] 5 07:47:40 Neck pain 28521988 Active 2024 NERIS RAY PA-C [address] [place] [address] 1, [place] [facility] [place] 07:48:01 Problem Notes None recorded. Procedures Surgical History Date Name Laterality Status Provider Name and Address Organization Details Recorded Time 03/18/20 25 Injection Only completed NERIS RAY PA-C [address] [place] [address], [phone], [facility] & [place] 03/18/2025 16:46:47 02/12/20 25 TPI BL,L,R completed Samia Broussard [facility] & [place] 02/11/2025 09:39:28 01/07/20 24 Medicare Annual Wellness Visit Health Risk Assessment completed Mikal Hernandez [facility] & [place] 01/07/2024 08:04:47 08/19/19 15 Hip Surgery completed Los Bui [facility] & [place] 08/14/2023 15:45:18 radiofrequency ablation of peripheral nerve using fluoroscopic guidance completed [facility] & [place] 05/25/2025 10:31:44 Imaging Results None recorded. Procedure Notes None recorded. Medical Equipment None Reported. Allergies Allergen ID Allergen Name Allergen Category Reaction Reaction Severity Criticality Documentation Date Start Date Code Code System Note Provider Name and Address Organization Details Recorded Time 642405 No known allergy (situatio n) Not available Not available Not available Not available 12/22/2024 54356 6003 SNOMED Oliva Colon null, [facility] & [place] 13:33:48 043780 tramadol medicatio n Not available Not available Not available 05/25/2025 33083 RxNorm twitc kurt WOOD NP [address] [place] [address], [phone], [facility] & [place] 13:05:53 Medications Name Sig Start Date Stop Date Status Note LastModified by Organization Details LastModified Time Prescriptio n - Clarificati on 01/15 completed Not Available Not Available Not Available promethazin e-DM 6.25 mg-15 mg/5 mL oral syrup TAKE 5 ML BY MOUTH EVERY 4 HOURS NEEDED FOR COUGH (DO NOT EXCEED 4 DOSES PER DAY) 09/20 /2024 completed Not Available Not Available Not Available [...] Details Last Updated DateTime 5 185.42 cm 28.4 kg/m2 14476.3 6 g 97.5 [degF] 95 % 95 % 82 /min 130/82 mm[Hg] Hernán Acevedo [place] - [facility] & [place] 5 08:07:38 Social History Question Answer Notes LastModified by Organizat ion Details LastModified Time Tobacco Smoking Status Former Smoker Los trevino, MARY Riddle [facility] & [place] 08/14/2023 15:45:18 Do You Have An Advance Directive? No [email or web address] Information not available 08/14/2023 Do You Wear A Helmet When Biking? Yes [email or web address] Information not available 11/05/2023 Are You Blind Or Do You Have Difficulty Seeing? No [email or web address] Information not available 08/14/2023 Is Blood Transfusion Acceptable In An Emergency? No [email or web address] Information not available 11/05/2023 What Is Your Level Of Caffeine Consumption? Occasional [email or web address] Information not available 01/07/2024 In The 14 Days Before Symptom Onset, Have You Had Close Contact With A Laboratory-confir med COVID-19 While That Case Was Ill? No [email or web address] Information not available 11/05/2023 In The 14 Days Before Symptom Onset, Have You Had Close Contact With A Person Who Is Under Investigation For COVID-19 While That Person Was Ill? No [email or web address] Information not available 11/05/2023 Have You Been To An Area Known To Be High Risk For COVID-19? No [email or web address] Information not available 11/05/2023 Are You Deaf Or Do You Have Serious Difficulty Hearing? No [email or web address] Information not available 11/05/2023 What Type Of Diet Are You Following? REGULAR Information not available 11/05/2023 Have You Processed Blood Or Body Fluids From An Ebola Virus Disease Patient Without Appropriate PPE? No [email or web address] Information not available 11/05/2023 Do You Reside In Or Have You Traveled To An Area Where Ebola Virus Transmission Is Active? No [email or web address] Information not available 11/05/2023 Have There Been Any Changes To Your Family Or Social Situation? No [email or web address] Information no t available 11/05/2023 What Is The Fluoride Status Of Your Home? Unknown [email or web address] Information not available 11/05/2023 Are There Any Guns Present In Your Home? No [email or web address] Information not available 11/05/2023 Have You Recently Or Are You Planning To Travel To An Area With Zika Virus? No [email or web address] Information not available 11/05/2023 Do You Use Insect Repellent Routinely? Yes Information not available 11/05/2023 Do You Feel Safe At Home? Yes [email or web address] Information not available 11/05/2023 Do You Have A Medical Power Of Squilgeer? No Information not available 11/05/2023 What Was The Date Of Your Most Recent Tobacco Screening? 05/25/2025 [email or web address] Information not available 05/25/2025 Do You Have Any Pets? No [email or web address] Information not available 11/05/2023 Do You Use Your Seat Belt Or Car Seat Routinely? Yes [email or web address] Information not available 11/05/2023 Do You Have Smoke And Carbon Monoxide Detectors In Your Home? No [email or web address] Information not available 11/05/2023 Are You Passively Exposed To Smoke? No [email or web address] Information no t available 11/05/2023 How Much Tobacco Do You Smoke? 1 PPD [email or web address] Information not available 08/14/2023 Do You Use Sunscreen Routinely? Yes Information not available 11/05/2023 Has Tobacco Cessation Counseling Been Provided? Yes [email or web address] Information not available 01/15/2025 On What Date Was Tobacco Cessation Counseling Provided? 05/25/2025 [email or web address] Information not available 05/25/2025 How Many Years Have You Smoked Tobacco? 20 [email or web address] Information not available 08/14/2023 Do You Have Difficulty Walking Or Climbing Stairs? No [email or web address] Information not available 11/05/2023 Are You Currently In School? No [email or web address] Information not available 11/05/2023 Sex: Unknown Functional Status Question Answer Note LastModified by Organizat ion Details LastModified Time Do you use any illicit or recreational drugs? No [email or web address] Information not available 08/14/2023 Do you or have you ever used any other forms of tobacco or nicotine? No [email or web address] Information not available 01/07/2024 What is your level of alcohol consumption? None [email or web address] Information not available 08/14/2023 Are you currently employed? Yes [email or web address] Information not available 11/05/2023 Do you have transportation difficulties? No [email or web address] Information not available 11/05/2023 Are you able to walk independently without assistance or assistive devices? YESWOREST [email or web address] Information not available 11/05/2023 Do you have difficulty doing errands alone? No [email or web address] Information not available 11/05/2023 Are you able to care for yourself independently? Yes [email or web address] Information not available 11/05/2023 Do you have difficulty dressing, bathing, grooming, or toileting? No [email or web address] Information not available 11/05/2023 What is your exercise level? Moderate [email or web address] Information not available 08/14/2023 Mental Status Question Answer Note LastModified by Organizat ion Details LastModified Time Do you feel stressed (tense, restless, nervous, or anxious, or unable to sleep at night)? [id number] [email or web address] Information not available 08/14/2023 Do you have difficulty concentrating, remembering or making decisions? No [email or web address] Information no t available 11/05/2023 Family History Relationship Description Onset Age of this Age Resolved Age Notes LastModified by Organization Details LastModified Time Mother Hypertensive disorder [email or web address] Not available 2023 16:23:09 Sister Diabetes mellitus [email or web address] Not available 2024 10:11:24 Medical History Condition Response Diabetes Y Gout Y Kidney or Bladder Problems Y Hypertension Y High Cholesterol Y Immunizations Vaccine Type Date Status Note Provider Nam e and Address Organization Details Recorded Time zoster recombinant 2 completed Oliva Colon null, [place] - [facility] - [place] & [place] 04/28/2025 14:00:22 zoster recombinant 2 completed Oliva Colon [place] [facility] [place] & [place] 04/28/2025 14:00:22 Influenza, high-dose, quadrivalent, PF 2 completed Aye Charles null, [place] [facility] [place] & [place] 10/20/2023 15:02:37 Influenza, adjuvanted, quadrivalent, PF 1 completed Oliva Colon [place], [place] [facility] [place] & [place] 04/28/2025 14:00:22 Influenza, adjuvanted, quadrivalent, PF 3 completed Aye Carolina null, [facility] & [place] 10/20/2023 15:02:37 COVID-19, mRNA, LNP-S, PF, 100 mcg/0.5mL dose or 50 mcg/0.25mL dose 2 completed Oliva Colon null, [facility] & [place] 04/28/2025 14:00:22 COVID-19, mRNA, LNP-S, PF, 100 mcg/0.5mL dose or 50 mcg/0.25mL dose 2 completed Oliva Colon null, [facility] & [place] 04/28/2025 14:00:22 COVID-19, mRNA, LNP-S, PF, 100 mcg/0.5mL dose or 50 mcg/0.25mL dose 1 completed Oliva Colon null, [facility] & [place] 04/28/2025 14:00:22 COVID-19, mRNA, LNP-S, PF, 100 mcg/0.5mL dose or 50 mcg/0.25mL dose 1 completed Oliva Colon null, [facility] & [place] 04/28/2025 14:00:22 COVID-19 vaccine, vector-nr, rS-Ad26, PF, 0.5 mL 1 completed Oliva Colon null, [facility] & [place] 04/28/2025 14:00:22 Pneumococcal conjugate PCV20, polysaccharide RAW943 conjugate, adjuvant, PF 3 completed Oliva Colon null, [facility] & [place] 04/28/2025 14:00:22 COVID-19, mRNA, LNP-S, bivalent, PF, 50 mcg/0.5 mL or 25mcg/0.25 mL dose 3 completed Aye Araceli null, [facility] & [place] 10/20/2023 15:02:37 COVID-19, mRNA, LNP-S, bivalent, PF, 50 mcg/0.5 mL or 25mcg/0.25 mL dose 2 completed Oliva Colon [place] [facility] [place] & [place] 04/28/2025 14:00:22 COVID-19, mRNA, LNP-S, PF, 50 mcg/0.5 mL 3 completed Aye Araceli [place] [facility] [place] & [place] 10/20/2023 15:02:37 pneumococcal polysaccharide PPV23 1 completed Oliva Colon [place] [facility] [place] & [place] 04/28/2025 14:00:22 Tdap 2 completed Oliva Colon [place] [facility] [place] & [place] 04/28/2025 14:00:22 Hep B, adult 3 completed Ol[place] Colon [place] [facility] [place] & [place] 04/28/2025 14:00:22 Hep B, adult 3 completed Oliva Colon [place] [facility] [place] & [place] 04/28/2025 14:00:22 Influenza, split virus, quadrivalent, PF 0 completed Oliva Colon [place] [facility] [place] & [place] 04/28/2025 14:00:22 Hep A-Hep B 3 completed Oliva Colon [place] [facility] [place] & [place] 04/28/2025 14:00:22 COVID-19, mRNA, LNP-S, PF, vinay-sucrose, 30 mcg/0.3 mL 4 completed Oliva Colon [place] [facility] [place] & [place] 04/28/2025 14:00:22 Influenza, high-dose, trivalent, PF 4 completed Oliva Colon [place] [facility] [place] & [place] 04/28/2025 14:00:22 COVID-19, mRNA, LNP-S, PF, 50 mcg/0.5 mL 5 completed Not Available [facility] 10:12:35 Past Encounters Encounter ID Performer Location Encounter Start Date Encounter Closed Date Diagnosis/Indication Diagnosis SNOMED-CT Code Diagnosis ICD10 Code Diagnosis IMO Codes Diagnosis Note [id number] NERIS RAY PA-C [facility]- [address] [place] [address] 04/15/2025 08:14:35 04/15/2025 08:57:24 Stenosis of spinal canal due to intervertebral disc 616720229 M99.51 Ossificati on of posterior longitudinal ligament 01526244 M48.8X2 Chronic ki dney disease stage 3 663364989 N18.30 Lumbar spondylosis 24083 0009 M47.896 - The patient is S/P [...] y-guided. Compressio n fracture of lumbar spine 154557695 S32.040D 8170953487 Spasm 78501270 M62.838 73005 - Refill Baclofen 10 mg Q8 hours prn Pain of le ft shoulder region 2068624206 M25.512 88961733 - The previous complaint of left shoulder pain has resolved. Neck pain 46680280 M54.2 66119 - I have reviewed the cervical x-ray (08/2024), which revealed moderate degenerati ve disc disease; disc space narrowing at C5-C6.- I have reviewed the cervical MRI (08/2024), which revealed severe degenerati ve disc disease; severe posterior longitudin al ligament thickening ; severe spinal cord narrowing from C3-C5. Lumbago with sciatica 20 1761472 M54.40 52816732 - I have reviewed the lumbar x-ray (01/2025), which revealed severe degenerati ve disc disease; facet hypertroph y; disc space narrowing from L1-S1; possible L4 and L5 vertebral body compressio n.- I have reviewed the lumbar MRI, which revealed multilevel degenerati ve chnges; facet arthropath y. Subacromia l bursitis of left shoulder 9232706834 399523 M75.52 39167139 - The patient is S/P (03/18/25) left subacromia l bursa injection, which was successful in decreasing left shoulder pain by nearly 100%. Pain in th oracic spine 890652461 M54.6 63819 - I have reviewed the thoracic x-ray (01/2025), which revealed spondylosi s; degenerati ve disc disease. Long-term current use of opiate analgesic drug 1172793073 62354 Z79.891 865623 - The patient takes Hydrocodon e/APAP 5-325 [...] of Acetaminop hen use too. Cervical radiculopathy 10960212 M54.2 M54.12 468527 - I may order an EMG/NCS of the RUE to gain further insight into etiology/p athology. Spinal katharine nosis in cervical region 83421953 M99.51 - The patient is S/P (01/2025) cervical epidural, which was successful in decreasing radicular neck pain by greater than 50%. Myofascial pain 97808755 9 M79.18 790421 - The patient complains of low back pain described as tightness/ spasm, which was exacerbate d recently.- In effort to reduce inflammati on, I will prescribe a Medrol dose pack. [id number] NERIS RAY PA-C [facility]- [address] [place] [address] 05/13/2025 07:50:56 05/17/2025 11:00:16 Stenosis of spinal canal due to intervertebral disc 503888717 M99.51 Lumbar spondylosis 59514 0009 M47.896 Compressio n fracture of lumbar spine 087000311 S32.040D 6504213987 Spasm 51355193 M62.838 61021 Pain of le ft shoulder region 4108678198 M25.512 67927234 Lumbago with sciatica 20 6078564 M54.40 75913060 - I have reviewed the lumbar x-ray (01/2025), which revealed severe degenerati ve disc disease; facet hypertroph y; disc space narrowing from L1-S1; possible L4 and L5 vertebral body compressio n.- I have reviewed the lumbar MRI, which revealed multilevel degenerati ve changes; facet arthropath y. Subacromia l bursitis of left shoulder 9655024676 585132 M75.52 26516081 Long-term current use of opiate analgesic drug 1455093694 48614 Z79.891 636971 Myofascial pain 78245538 9 M79.18 472482 Health Concerns Section Related Observation LastModified by Organization Detai ls LastModified Time None Recorded Concern Status LastModified by Organization Details LastModified Time None Recorded Payers Encounter Date Sequence Insurance Name Policy Number Policy Freeman Covered Member ID Freeman Member ID Guarantor Name 05/13/2025 1 [employer] (MEDICARE REPLACEMENT/ ADVANTAGE - HMO) Patric Irizarry [id number] Patric Irizarry 05/13/2025 2 MEDICAID-[facility] CHOICES - FFS/TRADITIO NAL Patric Irizarry [id number] Patric Irizarry Notes Date Note Type Note Provider Name and Address Organization Details Recorded Time 05/13/2025 text/html ROS as noted in the HPI 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 The patient has a PMH of CKD. The patient presents for a follow-up visit after undergoing a lumbar ablation procedure 10 days ago. He reports significant improvement in his low back pain, stating he can sit up without pain and perform daily activities such as washing without discomfort. He denies the need for pain medication for his back. However, he mentions experiencing a stiff neck upon waking this morning, which he attributes to the steroid injection administered during the procedure. He notes that the stiffness lasted approximately five to six days but has since resolved. Regarding his left shoulder, Patric reports that the pain has started to return, though not as severe as before. He recalls receiving a left subacromial bursa injection approximately one to one and a half months ago. He has previously completed eight weeks of physical therapy for his shoulder, which he states worsened his symptoms. He expresses interest in waiting to see if the shoulder pain improves before pursuing further interventions. Patric also discusses his medication regimen, noting that he last filled his prescriptions for Lortab and Baclofen on 04/19. He requests a refill for both medications, stating that he may need them for another month. He describes himself as being quick to discontinue pain medications and physical therapy due to discomfort and anxiety. Today the pain level is a /10. NERIS RAY PA-C [address] [place] [address], [phone], [facility] - [facility] - [place] & [place] 05/17/2025 07:49:54
--- OUTSIDE RECORDS SUMMARY | 2025-06-04 16:26 | XMS_ITS | Data Portability ---
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 The patient has a PMH of CKD. The patient presents to the clinic today for a medication refill. 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 The patient has a PMH of CKD. 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 The patient has a PMH of CKD. The patient presents to the clinic today for a medication refill. 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 Not available 05/17/2025 07:49:34 05/25/2025 05/25/2025 The patient was advised to monitor bowel movements while using hydrocodone as needed, and to use MiraLAX or stool softeners if constipation occurs. Follow-up instructions were provided, and the patient was advised to call the clinic if any concerns arise. [email or web address] Not available 05/25/2025 13:08:20 Plan of Treatment Reminders Order Date Submit Date Provider Last Modified By Organization Details Last Modified Time Details Appointments OV EST 15 2024 08:15A M RAFAEL CERNA PA-C Not available Not available Not available OV EST 15 2024 09:45A M RAFAEL CERNA PA-C Not available Not available Not available Lab magnesium , serum or plasma 2024 025 [facility] (Laboratory), [address] , [place], [address], 05/25/2025 14:57:01 vitamin D, 25-hydrox y, total, serum 2024 [email or web address] [facility] (Laboratory), [address] [place], [address], 06/01/2025 07:36:18 lipid panel, serum 2024 [facility] (Laboratory), [address] [place], [address], 05/25/2025 14:57:03 PSA, serum or plasma 2024 [facility] (Laboratory), [address] [place], [address], 05/25/2025 14:57:05 HbA1c (hemoglob in A1c), blood 2024 [facility] (Laboratory), [address] [place], [address], 05/25/2025 13:47:13 CBC w/ auto diff 2024 [facility] (Laboratory), [address] [place], [address], 05/25/2025 13:41:44 CMP, serum or plasma 2024 [facility] (Laboratory), [address] [place], [address], 05/25/2025 14:56:57 TSH, serum or plasma 2024 025 [facility] (Laboratory), [address] [place], [address], 05/25/2025 14:56:59 Referral None recorded. Procedures lumbar radiofreq uency ablation (PROC) - Bilateral lumbar RFA at L1-L3. [address] and [address]. 2024 maritza Gan, [address] , [address] [place], [place], [address], 04/23/2025 08:40:32 lumbar radiofreq uency ablation (PROC) - BLRF L1-L3. [address]. [address] 2024 025 Herminio Gan, [address] , [address] [place], [place], [address], 04/23/2025 08:40:46 injection /aspirati on joint/bur sa (PROC) - Left subacromi al bursa injection . . 2024 025 [email or web address] Herminio Gan, [address], [place], [address], 04/02/2025 08:54:31 Surgeries None recorded. Imaging None recorded. Medication Orders fluticaso ne propionat e 50 mcg/actua tion nasal spray,galileo pension 2024 [facility], [address] [place] [address], [address], 05/25/2025 13:07:17 duloxetin e 30 mg capsule,d elayed release 2024 025 [facility], [address] [place] [address], [address], 05/25/2025 13:08:18 baclofen 10 mg tablet 2024 025 [facility], [address] [place] [address], [address], 05/17/2025 07:49:42 Medrol (Jewel) 4 mg tablets in a dose pack 2024 025 [facility], [address] [place] [address], [address], 05/25/2025 10:37:03 baclofen 10 mg tablet 2024 025 [facility] [address] [facility] [place], [address], 04/15/2025 09:00:35 baclofen 10 mg tablet 2024 025 [facility] [address] [place], [address], 03/18/2025 10:50:32 Patient TargetsNo targets recorded. Patient Instructions Encounter Date Encounter Id Patient Instructions Last Modified By Organization Details Last Modified Time 03/18/2025 [id number] I have discussed in great detail our [...] the benefits of the procedure and interventions. [email or web address] Not available 03/12/2025 10:52:25 03/29/2025 [id number] I have discussed in great detail our [...] the benefits of the procedure and interventions. I counseled the patient extensively and informed [...] the risk of withdrawal and the differences. Not available 03/29/2025 08:55:54 04/15/2025 [id number] I have discussed in great detail our [...] the risk of withdrawal and the differences. [email or web address] Not available 04/15/2025 08:54:35 05/13/2025 [id number] I have discussed in great detail our [...] 05/12/2025 09:26:12 Reason for Referral None Reported. Results Created Date Observation Date Name Description Value Unit Range Abnormal Flag Note LastModifiedBy Organization Detail LastModifiedTime 05/25/2005/25/2025 CBC AUTO W DIFF WBC 6.8 10 4.5-11 .5 Not Available [facility] (Lab Registration) [address] [place], [address], 05/25/2025 13:41:44 05/25/2005/25/2025 CBC AUTO W DIFF RBC 4.94 10 4.25-5 .57 Not Available [facility] (Lab Registration) [address] [place], [address], 05/25/2025 13:41:44 05/25/2005/25/2025 CBC AUTO W DIFF HGB 16.9 g/dL 13.5-1 7.2 Not Available [facility] (Lab Registration) [address] [place], [address], 05/25/2025 13:41:44 05/25/20 25 05/25/2025 CBC AUTO W DIFF HCT 48.6 % 42.0-5 2.0 Not Available [facility] (Lab Registration) [address] [place], [address], 05/25/2025 13:41:44 05/25/20 25 05/25/2025 CBC AUTO W DIFF MCV 98.4 fL 80-95 high Not Available [facility] (Lab Registration) [address] [place], [address], 05/25/2025 13:41:44 05/25/2005/25/2025 CBC AUTO W DIFF MCH 34.2 pg 27.0-3 4.0 high Not Available [facility] (Lab Registration) [address] [place], [address], 05/25/2025 13:41:44 05/25/20 25 05/25/2025 CBC AUTO W DIFF MCHC 34.8 g/dL 32.0-3 6.0 Not Available [facility] (Lab Registration) [address] [place], [address], 05/25/2025 13:41:44 05/25/20 25 05/25/2025 CBC AUTO W DIFF platelet count 158 10 150-45 0 Not Available [facility] (Lab Registration) [address] [place], [address], 05/25/2025 13:41:44 05/25/20 25 05/25/2025 CBC AUTO W DIFF RDW 13.3 % 12.3-1 5.1 Not Available [facility] (Lab Registration) [address] [place], [address], 05/25/2025 13:41:44 05/25/20 25 05/25/2025 CBC AUTO W DIFF MPV 9.2 fL 7.4-10 .4 Not Available [facility] (Lab Registration) [address], [place], [address], 05/25/2025 13:41:44 05/25/20 25 05/25/2025 CBC AUTO W DIFF granulocyte% 47.3 % 40-75 Not Available [facility] (Lab Registration) [address], [place], [address], 05/25/2025 13:41:44 05/25/20 25 05/25/2025 CBC AUTO W DIFF lymphocyte% 39.9 % 15-57 Not Available [facility] (Lab Registration) [address], [place], [address], 05/25/2025 13:41:44 05/25/20 25 05/25/2025 CBC AUTO W DIFF monocyte% 10.1 % 4.0-12 .0 Not Available [facility] (Lab Registration) [address], [place], [address], 05/25/2025 13:41:44 05/25/20 25 05/25/2025 CBC AUTO W DIFF eosinophil% 1.5 % 0.0-4. 0 Not Available [facility] (Lab Registration) [address] [place], [address], 05/25/2025 13:41:44 05/25/20 25 05/25/2025 CBC AUTO W DIFF basophil% 0.3 % 0.0-1. 0 Not Available [facility] (Lab Registration) [address] [place], [address], 05/25/2025 13:41:44 05/25/20 25 05/25/2025 CBC AUTO W DIFF immature granulocytes % 0.9 % 0.0-0. 8 high Not Available [facility] (Lab Registration) [address] [place], [address], 05/25/2025 13:41:44 05/25/20 25 05/25/2025 CBC AUTO W DIFF granulocyte# 3.20 10 Not Available [facility] (Lab Registration) [address] [place], [address], 05/25/2025 13:41:44 05/25/20 25 05/25/2025 CBC AUTO W DIFF lymphocyte# 2.70 10 Not Available [facility] (Lab Registration) [address] [place], [address], 05/25/2025 13:41:44 05/25/20 25 05/25/2025 CBC AUTO W DIFF monocyte# 0.68 10 Not Available [facility] (Lab Registration) [address], [place], [address], 05/25/2025 13:41:44 05/25/2005/25/2025 CBC AUTO W DIFF eosinophil# 0.10 10 Not Available [facility] (Lab Registration) [address] [place], [address], 05/25/2025 13:41:44 05/25/2005/25/2025 CBC AUTO W DIFF basophil# 0.02 10 Not Available [facility] (Lab Registration) [address] [place], [address], 05/25/2025 13:41:44 05/25/20 25 05/25/2025 CBC AUTO W DIFF immature granulocytes # 0.06 10 Not Available [facility] (Lab Registration) [address] [place], [address], 05/25/2025 13:41:44 05/25/2005/25/2025 CBC AUTO W DIFF manual differential NO Not Available [facility] (Lab Registration) [address], [place], [address], 05/25/2025 13:41:44 05/25/2005/25/2025 CBC AUTO W DIFF note Unles s other garves noted testi ng perfo rmed at: [facility] [address] [place] [address] [phone] Frank rossi MD CLIA: [id number] Not Available [facility] (Lab Registration) [address] [place], [address], 05/25/2025 13:41:44 05/25/2005/25/2025 HEMOG LOBIN A1C glycosylated hemoglobin A1C 6.5 % 4.5-6. 2 high Not Available [facility] (Lab Registration) [address] [place], [address], 05/25/2025 13:47:12 05/25/2005/25/2025 HEMOG LOBIN A1C estimated average glucose 140 mg/dL 82-131 high Not Available [facility] (Lab Registration) [address] [place], [address], 05/25/2025 13:47:12 05/25/2005/25/2025 HEMOG LOBIN A1C note Unles s other graves noted testi ng perfo rmed at: [facility] [address] [place] [address] [phone] Frank rossi MD CLIA: [id number] Not Available [facility] (Lab Registration) [address] [place], [address], 05/25/2025 13:47:12 05/25/2005/25/2025 COMP METAB OLIC PANEL sodium 133 mmol/ L 136-14 5 low Not Available [facility] (Lab Registration) [address] [place], [address], 05/25/2025 14:56:57 05/25/2005/25/2025 COMP METAB OLIC PANEL potassium 4.4 mmol/ L 3.5-5. 1 Not Available [facility] (Lab Registration) [address] [place], [address], 05/25/2025 14:56:57 05/25/2005/25/2025 COMP METAB OLIC PANEL chloride 96 mmol/ L 98-107 low Not Available [facility] (Lab Registration) [address], [place], [address], 05/25/2025 14:56:57 05/25/2005/25/2025 COMP METAB OLIC PANEL carbon dioxide 30 mmol/ L 21-32 Not Available [facility] (Lab Registration) [address] [place], [address], 05/25/2025 14:56:57 05/25/2005/25/2025 COMP METAB OLIC PANEL anion gap 7.0 Not Available [facility] (Lab Registration) [address] [place], [address], 05/25/2025 14:56:57 05/25/2005/25/2025 COMP METAB OLIC PANEL glucose 102 mg/dL 70-110 Not Available [facility] (Lab Registration) [address] [place], [address], 05/25/2025 14:56:57 05/25/2005/25/2025 COMP METAB OLIC PANEL blood urea nitrogen 15 mg/dL 7-18 Not Available [facility] (Lab Registration) [address] [place], [address], 05/25/2025 14:56:57 05/25/2005/25/2025 COMP METAB OLIC PANEL creatinine 1.3 mg/dL 0.8-1. 3 Not Available [facility] (Lab Registration) [address] [place], [address], 05/25/2025 14:56:57 05/25/2005/25/2025 COMP METAB OLIC PANEL BUN/creatini ne ratio 11.5 9-21 Not Available [facility] (Lab Registration) [address] [place], [address], 05/25/2025 14:56:57 05/25/2005/25/2025 COMP METAB OLIC PANEL estimated glom filtration rate 59 mL/mi n >60- low GFR LIMIT ATION : The eGFR equat ion CKD-E PI 2020 is not appli cable for pedia tric patie nts or great er than 90 years of age. The follo wing condi tions may alter the GFR resul t: extre mes in body size, malnu triti on or obesi ty, skele judi muscl e disea se, parap legia or quadr ipleg ia, veget rocio diet or rapid ly santo ing kiney funct ion. Not Available [facility] (Lab Registration) [address], [place], [address], 05/25/2025 14:56:57 05/25/2005/25/2025 COMP METAB OLIC PANEL osmolality (calculated) 278 mOsm/ kg 275-30 1 OSMOL ALITY IS A CALCU LATIO N UTILI ZING THE SERUM /PLAS MA SODIU M, GLUCO SE AND UREA NITRO GEN (BUN) LEVEL S. FOR THE MOST ACCUR ATE RESUL T A MEASU RED SERUM OSMOL ALITY IS SUGGE STED. Not Available [facility] (Lab Registration) [address], [place], [address], 05/25/2025 14:56:57 05/25/2005/25/2025 COMP METAB OLIC PANEL total protein 7.3 g/dL 6.4-8. 2 Not Available [facility] (Lab Registration) [address], [place], [address], 05/25/2025 14:56:57 05/25/2005/25/2025 COMP METAB OLIC PANEL albumin 3.9 g/dL 3.4-5. 0 Not Available [facility] (Lab Registration) [place], [address], 05/25/2025 14:56:57 05/25/2005/25/2025 COMP METAB OLIC PANEL calcium 9.6 mg/dL 8.5-10 .1 Not Available [facility] (Lab Registration) [place], [address], 05/25/2025 14:56:57 05/25/2005/25/2025 COMP METAB OLIC PANEL corrected calcium 9.7 mg/dL 8.5-10 .1 Not Available [facility] (Lab Registration) [address], [place], [address], 05/25/2025 14:56:57 05/25/2005/25/2025 COMP METAB OLIC PANEL bilirubin total 1.1 mg/dL 0.4-1. 5 Not Available [facility] (Lab Registration) [address] [place], [address], 05/25/2025 14:56:57 05/25/2005/25/2025 COMP METAB OLIC PANEL AST (SGOT) 44 U/L 15-37 high Not Available [facility] (Lab Registration) [address] [place], [address], 05/25/2025 14:56:57 05/25/2005/25/2025 COMP METAB OLIC PANEL ALT (SGPT) 93 U/L 12-78 high Not Available [facility] (Lab Registration) [address] [place], [address], 05/25/2025 14:56:57 05/25/2005/25/2025 COMP METAB OLIC PANEL alk phosphatase 106 U/L Not Available [facility] (Lab Registration) [address] [place], [address], 05/25/2025 14:56:57 05/25/2005/25/2025 COMP METAB OLIC PANEL note Unles s other graves noted testi ng perfo rmed at: [facility] [place] [address] [phone] Frank rossi MD CLIA: [id number] Not Available [facility] (Lab Registration) [address] [place], [address], 05/25/2025 14:56:57 05/25/2005/25/2025 THYRO ID STIMU LATIN G HORMO NE thyroid stimulating hormone 2.94 mIU/m L 0.34-4 .80 Not Available [facility] (Lab Registration) [address], [place], [address], 05/25/2025 14:56:59 05/25/2005/25/2025 THYRO ID STIMU LATIN G HORMO NE note Unles s other graves noted testi ng perfo rmed at: [facility] [address] [place] [address] [phone] Frank rossi MD CLIA: [id number] Not Available [facility] (Lab Registration) [address] [place], [address], 05/25/2025 14:56:59 05/25/2005/25/2025 MAGNE SIUM magnesium 2.0 mg/dL 1.8-2. 4 Not Available [facility] (Lab Registration) [address] [place], [address], 05/25/2025 14:57:01 05/25/2005/25/2025 MAGNE SIUM note Unlval rossi other graves noted testi ng perfo rmed at: [facility] [address] [place] [address] [phone] Frank rossi MD CLIA: [id number] Not Available [facility] (Lab Registration) [address] [place], [address], 05/25/2025 14:57:01 05/25/2005/25/2025 VITAM IN D TOTAL (D2+D 3) vitamin D25 (D2+D3) 20.3 NG/mL 30-100 low Not Available [facility] (Lab Registration) [address] [place], [address], 05/25/2025 14:57:02 05/25/2005/25/2025 VITAM IN D TOTAL (D2+D 3) note Unles s other graves noted testi ng perfo rmed at: [facility] [address] [place] [address] [phone] Frank rossi MD CLIA: [id number] Not Available [facility] (Lab Registration) [address] , [place], [address], 05/25/2025 14:57:02 05/25/2005/25/2025 LIPID PANEL triglyceride 142 mg/dL 20-200 The Natio nal Arlen [employer] l [employer]ca tion [employer] am (WVEP ) has set the follo wing guide lines for Fasti ng Trigl yceri marycruz: MAYA L: <150 mg/dL BORDE RLINE HIGH: 150 - 199 mg/dL HIGH: 200 - 499 mg/dL VERY HIGH: > or =500 mg/dL Not Available [facility] (Lab Registration) [address] , [place], [address], 05/25/2025 14:57:03 05/25/2005/25/2025 LIPID PANEL cholesterol 130 mg/dL 0-200 The Natio nal Arlen [employer] l [employer]ca tion Progr am (NCEP ) has set the follo wing guide lines for Fasti ng Arlen stero l: GERARDO ABLE: <200 mg/dL BORDE RLINE HIGH: 200 - 239 mg/dL HIGH: > or =240 mg/dL Not Available [facility] (Lab Registration) [address], [place], [address], 05/25/2025 14:57:03 05/25/2005/25/2025 LIPID PANEL HDL cholesterol 45 mg/dL 60- low The Natio nal Arlen [employer] l [employer]ca t[employer]gr am (NCEP ) has set the follo wing guide lines for Fasti ng HDL Arlen stero l: LOW HDL: <40 mg/dL MAYA L: 40 - 60 mg/dL GERARDO ABLE: >60 mg/dL Not Available [facility] (Lab Registration) [address], [place], [address], 05/25/2025 14:57:03 05/25/2005/25/2025 LIPID PANEL LDL calculated 57 mg/dL 100- low The Natio nal Arlen [employer] l [employer]ca tion Progr am (NCEP ) has set the follo wing guide lines for Fasti ng LDL Arlen stero l: OPTIM AL: < 100 mg/dL LOW RISK: 100 - 129 mg/dL BORDE RLINE HIGH: 130 - 159 mg/dL HIGH: 160 - 189 mg/dL VERY HIGH: > or = 190 mg/dL Not Available [facility] (Lab Registration) [address], [place], [address], 05/25/2025 14:57:03 05/25/20 25 05/25/2025 LIPID PANEL chol/HDL ratio 3 -5 Not Available [facility] (Lab Registration) [address], [place], [address], 05/25/2025 14:57:03 05/25/2005/25/2025 LIPID PANEL note Rodney s other graves noted testi ng perfo rmed at: [facility] on [facility] [address] [place] [address] [phone] Frank rossi MD CLIA: [id number] Not Available [facility] (Lab Registration) [address] [place], [address], 05/25/2025 14:57:03 05/25/2005/25/2025 PROST ATE SPECI FIC AG (PSA) prostate specific Ag (PSA) 0.53 NG/mL 0.0-4. 0 Not Available [facility] (Lab Registration) [address] [place], [address], 05/25/2025 14:57:05 05/25/20 25 05/25/2025 PROST ATE SPECI FIC AG (PSA) note Rodney s other graves noted testi ng perfo rmed at: [facility] [address] [place] [address] [phone] Frank rossi MD CLIA: [id number] Not Available [facility] (Lab Registration) [address] , [place], [address], 05/25/2025 14:57:05 05/25/20 25 05/25/2025 MICRO ALBUM IN/CR EATIN INE URINE microalbumin random 5.8 mcg/m L 1.3-17 .0 Not Available [facility] (Lab Registration) [address] , [place], [address], 05/25/2025 15:00:30 05/25/20 25 05/25/2025 MICRO ALBUM IN/CR EATIN INE URINE creatinine urine 75.3 mg/dL 30-125 Not Available [facility] (Lab Registration) [address] , [place], [address], 05/25/2025 15:00:30 05/25/20 25 05/25/2025 MICRO ALBUM IN/CR EATIN INE URINE microalbumin /creatinine ratio 0.1 ug/mg _crea t 0.0-30 .0 Not Available [facility] (Lab Registration) [address] [place], [address], 05/25/2025 15:00:30 05/25/20 25 05/25/2025 MICRO ALBUM IN/CR EATIN INE URINE note Unles s other graves noted testi ng perfo rmed at: [facility] [address] [place] [address] [phone] Frank rossi MD CLIA: [id number] Not Available [facility] (Lab Registration) [address] [place], [address], 05/25/2025 15:00:30 02/27/20 25 02/26/2025 MRI, lumba r spine , w/o contr ast [facility] [address] [place], [place] [address] Phone: Fax: Name: TYSON IRIZARRY Exam Date: : 1954 Age 69 years Gender : M Access ion: [id number] Physic du: TYSON AVILA Y Facili ty: [facility] Facili ty HSV: Outpat ient Exam: MRI SPINE LUMBAR WO EXAMIN ATION: MR LUMBAR SPINE WITHOU T IV CONTRA ST INDICA TION: pain TECHNI QUE: Multip lanar, multis equenc e MRI of the lumbar spine was perfor med withou t IV contra st. Unless specif ied, no imagin g follow -up is recomm ended for incide ntal findin gs. COMPAR MICHELLE: Fluoro scopy perfor med on 02/23/20 25 and plain radiog raph of the thorac ic and lumbar spine perfor med on 025. FINDIN GS: The alignm ent of lumbar spine is unrema rkable . There is degene rative disc diseas e at all levels . The bone marrow signal intens ity is unrema rkable . There are multil evel endpla te change s of the lumbar spine. There are scatte red tj iomas throug hout the lumbar spine and sacrum . The conus is at L1. At L1-2: There is a circum ferent ial disc bulge. There is mild facet arthro reese. There is no neural forami nal narrow ing. There is no spinal canal narrow ing. At L2-3: There is a circum ferent ial disc bulge. There is mild facet arthro reese. There is modera te bilate ral neural forami nal narrow ing. There is no spinal canal narrow ing. At L3-4: There is a circum ferent ial disc bulge. There is ligame ntum flavum hypert rophy. There is bilate ral latera l recess narrow ing There is mild facet arthro reese. There is modera te bilate ral neural forami nal narrow ing. There is modera te spinal canal narrow ing. At L4-5: There is a circum ferent ial disc bulge. There is ligame ntum flavum hypert rophy. There is bilate ral latera l recess narrow ing. There is mild facet arthro reese. There is severe left and modera te right neural forami nal narrow ing. There is no spinal canal narrow ing. At L5-S1: There is a circum ferent ial disc bulge with centra l disc protru francisco javier and annula r tear. There is modera te facet arthro reese. There is severe bilate ral neural forami nal narrow ing. There is no spinal canal narrow ing. Impres francisco javier: Multil evel degene rative change s of the lumbar spine as descri bed above. Electr onical ly signed by: Nirav fairchild MD 2024 03:55 PM EDT RP Workst ation: [id number] Dictat ed By: Nirav Jo Transc ribed By: Transc ribed On: 025 9:00 AM Legall y authen ticate d by ZAY WILLS MD 02-26 09:00: 00 Electr onical ly signed by: Nirav Jo 025 Thank you for referr ing TYSON IRIZARRY to [facility]. Legall y authen ticate d by ZAY WILLS MD 02-26 09:00: 00 CC'ed Logic: Orderi ng Provid er: AUSTIN Byers CC Provid er: AMBURG EY TAFFAN Y Attend ing Provid er: AUSTIN Byers Referr ing Provid er: AUSTIN Byers Admitt ing Provid er: AUSTIN Byers [email or web address] [facility] (Radiology) [address], [place], [address], 03/03/2025 09:15:03 02/27/20 25 02/26/2025 MRI, lumba r spine , w/o contr ast No observ ation record ed. [facility] (Radiology) [address], [place], [address], 02/26/2025 16:31:01 Result Notes None recorded. Problems Name Problem SNOMED Code Status Onset Date Resolution Date Notes Provider Name and Address Organization Details Recorded Time Essential hypertensio n 06033860 Active 2022 Mikal Hernandez null, [place] 4 09:41:05 Chronic kidney disease stage 3 524448885 Active 2022 NERIS RAY PA-C [address] [place], [address], [place] 5 07:48:57 Gout 08077499 Active 2022 Mikal Hernandez [place] 4 09:41:07 Erectile dysfunction 744439421 Active 2022 Mikal [place] 4 09:41:02 Chronic kidney disease stage 3 due to type 2 diabetes mellitus 979194206850 Active 2023 Mikal [place] 4 09:41:00 Uncontrolle d type 2 diabetes mellitus 717588198 Active 2023 Mikal Hernandez [place] 4 09:41:10 Hyperlipide carrie 80607076 Active 2023 Mikal [place] 5 09:54:31 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 983987515 Active 2024 Mikal [place] 5 09:54:39 Cervical spondylosis 164544947 Active 2024 Mikla [place] 5 09:54:21 Cervical radiculopat hy 53143644 Active 2024 NERIS RAY PA-C [address] [facility], [place], [address], [place] 5 07:49:15 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 05741248 Active 2024 NERIS RAY PA-C [address] [place] [address], [address] [place] [address] 1, [place] 5 07:48:52 Lumbar spondylosis 113039738 Active 2024 PATRIC AVILA [address], [address] [place] [address] 1, [place] 5 08:31:02 Myofascial pain 282531938 Active 2024 PATRIC AVILA [address], [address] [place] [address] 1, [place] 5 08:33:29 Compression fracture of lumbar spine 697205967 Active 2024 PATRIC AVILA [address], [address] [place] [address] 1, [place] 5 09:41:10 Claustropho cal 01408294 Active 2024 PATRIC AVILA [address], [address] [place] [address] 1, [place] 5 13:02:42 Spinal stenosis in cervical region 50379195 Active 2024 NERIS RAY PA-C [address] [place] [address], [address] [place] [address] 1, [place] 5 07:47:31 Pain in thoracic spine 626529263 Active 2024 NERIS RAY PA-C [address] [place] [address], [address] [place] [address] 1, [place] 5 07:47:40 Neck pain 49586982 Active 2024 NERIS RAY PA-C [address] [place] [address], [address] [place] [address] 1, [place] 5 07:48:01 Problem Notes None recorded. Procedures Surgical History Date Name Laterality Status Provider Name and Address Organization Details Recorded Time 03/18/20 25 Injection Only completed NERIS RAY PA-C [address] [place] [address], [id number], [facility] & [place] 03/18/2025 16:46:47 02/12/20 25 TPI BL,L,R completed Samia Broussard [facility] & [place] 02/11/2025 09:39:28 01/07/20 24 Medicare Annual Wellness Visit Health Risk Assessment completed Mikal Hernandez [facility] & [place] 01/07/2024 08:04:47 08/19/19 15 Hip Surgery completed Los Bui [facility] & [place] 08/14/2023 15:45:18 radiofrequency ablation of peripheral nerve using fluoroscopic guidance completed Mikal Hernandez [facility] & [place] 05/25/2025 10:31:44 Imaging Results None recorded. Procedure Notes None recorded. Medical Equipment None Reported. Allergies Allergen ID Allergen Name Allergen Category Reaction Reaction Severity Criticality Documentation Date Start Date Code Code System Note Provider Name and Address Organization Details Recorded Time 328880 No known allergy (situatio n) Not available Not available Not available Not available 12/22/2024 00256 6003 SNOMED Oliva Colon null, [facility] & [place] 13:33:48 679073 tramadol medicatio n Not available Not available Not available 05/25/2025 14566 RxNorm twitc kurt WOOD NP [address] [place] [address], [phone], [facility] & [place] 13:05:53 Medications Name Sig Start Date Stop [...] height Body mass index (BMI) Body weight Oxygen saturation Oxygen saturation in Arterial blood by Pulse oximetry Heart rate Body temperature Systolic And Diastolic Provider Name and Address Organization Details Last Updated DateTime 5 185.42 cm 29 kg/m2 45441.3 2 g 96 % 96 % 77 /min 97.5 [degF] 122/68 mm[Hg] Hernán HERNANDEZ - [place] - [place] & [place] 5 09:02:07 Date Recorded Body height Body mass index (BMI) Body weight Body temperature Oxygen saturation Oxygen saturation in Arterial blood by Pulse oximetry Heart rate Systolic And Diastolic Provider Name and Address Organization Details Last Updated DateTime 5 185.42 cm 28.4 kg/m2 80847.3 6 g 97.2 [degF] 95 % 95 % 88 /min 122/76 mm[Hg] Hernán EVANS [facility] & [place] 5 08:14:37 Date Recorded Body height Body mass index (BMI) Body weight Body temperature Oxygen saturation Oxygen saturation in Arterial blood by Pulse oximetry Heart rate Systolic And Diastolic Provider Name and Address Organization Details Last Updated DateTime 5 185.42 cm 28.5 kg/m2 53057.9 5 g 97.3 [degF] 97 % 97 % 80 /min 122/70 mm[Hg] [facility] & [place] 5 08:30:35 Date Recorded Body height Body mass index (BMI) Body weight Body temperature Oxygen saturation Oxygen saturation in Arterial blood by Pulse oximetry Heart rate Systolic And Diastolic Provider Name and Address Organization Details Last Updated DateTime 5 185.42 cm 28.4 kg/m2 46802.3 6 g 97.5 [degF] 95 % 95 % 82 /min 130/82 mm[Hg] Hernán Riddle [facility] & [place] 5 08:07:38 Date Recorded Body height Body mass index (BMI) Body weight Body temperature Oxygen saturation Oxygen saturation in Arterial blood by Pulse oximetry Heart rate Respiratory rate Systolic And Diastolic Provider Name and Address Organization Details Last Updated DateTime 5 185.42 cm 29.2 kg/m2 736932. 91 g 97.9 [degF] 99 % 99 % 97 /min 18 /min 127/76 mm[Hg] Mikal Hernandez MARY Riddle [facility] & [place] 5 10:30:24 Social History Question Answer Notes LastModified by Organizat ion Details LastModified Time Tobacco Smoking Status Former Smoker Los trevino, MARY Riddle [facility] & [place] 08/14/2023 15:45:18 Do You Have An Advance Directive? No [email or web address] Information not available 08/14/2023 Do You Wear A Helmet When Biking? Yes [email or web address] Information not available 11/05/2023 Are You Blind Or Do You Have Difficulty Seeing? No [email or web address] Information not available 08/14/2023 Is Blood Transfusion Acceptable In An Emergency? No [email or web address] Information not available 11/05/2023 What Is Your Level Of Caffeine Consumption? Occasional [email or web address] Information not available 01/07/2024 In The 14 Days Before Symptom Onset, Have You Had Close Contact With A Laboratory-confir med COVID-19 While That Case Was Ill? No [email or web address] Information not available 11/05/2023 In The 14 Days Before Symptom Onset, Have You Had Close Contact With A Person Who Is Under Investigation For COVID-19 While That Person Was Ill? No [email or web address] Information not available 11/05/2023 Have You Been To An Area Known To Be High Risk For COVID-19? No Information not available 11/05/2023 Are You Deaf Or Do You Have Serious Difficulty Hearing? No [email or web address] Information not available 11/05/2023 What Type Of Diet Are You Following? REGULAR [email or web address] Information not available 11/05/2023 Have You Processed Blood Or Body Fluids From An Ebola Virus Disease Patient Without Appropriate PPE? No [email or web address] Information not available 11/05/2023 Do You Reside In Or Have You Traveled To An Area Where Ebola Virus Transmission Is Active? No [email or web address] Information not available 11/05/2023 Have There Been Any Changes To Your Family Or Social Situation? No [email or web address] Information no t available 11/05/2023 What Is The Fluoride Status Of Your Home? Unknown [email or web address] Information not available 11/05/2023 Are There Any Guns Present In Your Home? No [email or web address] Information not available 11/05/2023 Have You Recently Or Are You Planning To Travel To An Area With Zika Virus? No [email or web address] Information not available 11/05/2023 Do You Use Insect Repellent Routinely? Yes [email or web address] Information not available 11/05/2023 Do You Feel Safe At Home? Yes [email or web address] Information not available 11/05/2023 Do You Have A Medical Power Of Z [employer] Program[employer]? No [email or web address] Information not available 11/05/2023 What Was The Date Of Your Most Recent Tobacco Screening? 05/25/2025 [email or web address] Information not available 05/25/2025 Do You Have Any Pets? No [email or web address] Information not available 11/05/2023 Do You Use Your Seat Belt Or Car Seat Routinely? Yes [email or web address] Information not available 11/05/2023 Do You Have Smoke And Carbon Monoxide Detectors In Your Home? No Information not available 11/05/2023 Are You Passively Exposed To Smoke? No [email or web address] Information no t available 11/05/2023 How Much Tobacco Do You Smoke? 1 PPD [email or web address] Information not available 08/14/2023 Do You Use Sunscreen Routinely? Yes [email or web address] Information not available 11/05/2023 Has Tobacco Cessation Counseling Been Provided? Yes [email or web address] Information not available 01/15/2025 On What Date Was Tobacco Cessation Counseling Provided? 05/25/2025 [email or web address] Information not available 05/25/2025 How Many Years Have You Smoked Tobacco? 20 [email or web address] Information not available 08/14/2023 Do You Have Difficulty Walking Or Climbing Stairs? No [email or web address] Information not available 11/05/2023 Are You Currently In School? No [email or web address] Information not available 11/05/2023 Sex: Unknown Functional Status Question Answer Note LastModified by Organizat ion Details LastModified Time Do you use any illicit or recreational drugs? No [email or web address] Information not available 08/14/2023 Do you or have you ever used any other forms of tobacco or nicotine? No [email or web address] Information not available 01/07/2024 What is your level of alcohol consumption? None [email or web address] Information not available 08/14/2023 Are you currently employed? Yes [email or web address] Information not available 11/05/2023 Do you have transportation difficulties? No [email or web address] Information not available 11/05/2023 Are you able to walk independently without assistance or assistive devices? YESWOREST Information not available 11/05/2023 Do you have difficulty doing errands alone? No Information not available 11/05/2023 Are you able to care for yourself independently? Yes [email or web address] Information not available 11/05/2023 Do you have difficulty dressing, bathing, grooming, or toileting? No [email or web address] Information not available 11/05/2023 What is your exercise level? Moderate [email or web address] Information not available 08/14/2023 Mental Status Question Answer Note LastModified by Organizat ion Details LastModified Time Do you feel stressed (tense, restless, nervous, or anxious, or unable to sleep at night)? [id number] [email or web address] Information not available 08/14/2023 Do you have difficulty concentrating, remembering or making decisions? No [email or web address] Information no t available 11/05/2023 Family History Relationship Description Onset Age of this Age Resolved Age Notes LastModified by Organization Details LastModified Time Mother Hypertensive disorder [email or web address] Not available 2023 16:23:09 Sister Diabetes mellitus [email or web address] Not available 2024 10:11:24 Medical History Condition Response Gout Y High Cholesterol Y Kidney or Bladder Problems Y Diabetes Y Hypertension Y Immunizations Vaccine Type Date Status Note Provider Nam e and Address Organization Details Recorded Time zoster recombinant 2 completed Oliva Colon null, [place] & [place] 04/28/2025 14:00:22 zoster recombinant 2 completed Oliva Colon [place] 04/28/2025 14:00:22 Influenza, high-dose, quadrivalent, PF 2 completed [place] null, [place] [facility] & [place] 10/20/2023 15:02:37 Influenza, adjuvanted, quadrivalent, PF 1 completed Oliva Colon [place] 04/28/2025 14:00:22 Influenza, adjuvanted, quadrivalent, PF 3 completed Aye Araceli [place] 10/20/2023 15:02:37 COVID-19, mRNA, LNP-S, PF, 100 mcg/0.5mL dose or 50 mcg/0.25mL dose 2 completed Oliva Colon [place] 04/28/2025 14:00:22 COVID-19, mRNA, LNP-S, PF, 100 mcg/0.5mL dose or 50 mcg/0.25mL dose 2 completed Oliva Colon null, [facility] & [place] 04/28/2025 14:00:22 COVID-19, mRNA, LNP-S, PF, 100 mcg/0.5mL dose or 50 mcg/0.25mL dose 1 completed Oliva Colon null, [facility] & [place] 04/28/2025 14:00:22 COVID-19, mRNA, LNP-S, PF, 100 mcg/0.5mL dose or 50 mcg/0.25mL dose 1 completed Oliva Colon null, [facility] & [place] 04/28/2025 14:00:22 COVID-19 vaccine, vector-nr, [id number], PF, 0.5 mL 1 completed Oliva Colon null, [facility] & [place] 04/28/2025 14:00:22 Pneumococcal conjugate PCV20, polysaccharide [id number] conjugate, adjuvant, PF 3 completed Oliva Colon null, [facility] & [place] 04/28/2025 14:00:22 COVID-19, mRNA, LNP-S, bivalent, PF, 50 mcg/0.5 mL or 25mcg/0.25 mL dose 3 completed Aye Araceli null, [facility] & [place] 10/20/2023 15:02:37 COVID-19, mRNA, LNP-S, bivalent, PF, 50 mcg/0.5 mL or 25mcg/0.25 mL dose 2 completed Oliva Colon null, [facility] & [place] 04/28/2025 14:00:22 COVID-19, mRNA, LNP-S, PF, 50 mcg/0.5 mL 3 completed Aye Araceli null, [facility] & [place] 10/20/2023 15:02:37 pneumococcal polysaccharide PPV23 1 completed Oliva Colon [place] 04/28/2025 14:00:22 Tdap 2 completed Oliva Colon [place] 04/28/2025 14:00:22 Hep B, adult 3 completed Oliva Colon [place] 04/28/2025 14:00:22 Hep B, adult 3 completed Oliva Colon [place] 04/28/2025 14:00:22 Influenza, split virus, quadrivalent, PF 0 completed Oliva Colon [place] 04/28/2025 14:00:22 Hep A-Hep B 3 completed Oliva Colon null, [place] - [facility] - [place] & [place] 04/28/2025 14:00:22 COVID-19, mRNA, LNP-S, PF, vinay-sucrose, 30 mcg/0.3 mL 4 completed Oliva Colon null, [place] - [facility] - [place] & [place] 04/28/2025 14:00:22 Influenza, high-dose, trivalent, PF 4 completed Oliva Colon null, [place] - [facility] - [place] & [place] 04/28/2025 14:00:22 COVID-19, mRNA, LNP-S, PF, 50 mcg/0.5 mL 5 completed Not Available [facility] 05/25/[facility]25 10:12:35 Past Encounters Encounter ID Performer Location Encounter Start Date Encounter Closed Date Diagnosis/Indication Diagnosis SNOMED-CT Code Diagnosis ICD10 Code Diagnosis IMO Codes Diagnosis Note [id number] Faisal Collins MD [facility] [address] [place] [address] 07/23/2023 15:22:49 07/23/2023 16:50:55 Essential hypertension 38230501 I10 blood pressure by my check today is 160/94. Add amlodipine to the lisinopril hydrochlor othiazide. See back in 1 month for re-evaluat ion due fasting blood work at that time Chronic ki dney disease stage 3 546591007 N18.30 recheck status with blood work in 1 month Gout 48094722 M10.9 recheck uric acid level Erectile dysfunction 860 526154 F52.21 try quarter to half tablet as needed [id number] Faisal Collins MD [address] [place] [address] 08/14/2023 15:32:41 08/14/2023 16:29:42 Sore throat 015259731 J02.9 test negative Cough 46035620 R05.9 test negative Acute bronchitis 7504334 2 J20.9 productive cough patient also having some mild shortness of breath. History of bronchitis and pneumonia in the past. We will treat with Levaquin. Also recommend Imodium over-the-c ounter for diarrhea. Push fluids brat diet. Seek medical care if symptoms worsen or no improvemen t in 2-3 days. [id number] Faisal Collins MD [address] [place] [address] 09/05/2023 07:58:05 09/05/2023 11:58:50 Essential hypertension 60303051 I10 Check blood work today. We will call test results blood pressures at home are controlled . We will continue present meds. See back in 3 months. Gout 65219094 M10.9 recheck uric acid level. No flares recently. Chronic ki dney disease stage 3 421539081 N18.30 Check blood work today we did discuss the use of Farxiga. Await blood work results. [id number] Faisal Collins MD [address] [place] [address] 11/05/2023 09:29:09 11/05/2023 12:24:50 Gouty arthritis of left foot 3176530329 320864 M1A.0720 acute flare of gout left foot. Most recent uric acid was elevated 8.2. Discussed increasing allopurino l to 300 mg. Most recent renal function has improved. We will proceed with treatment steroids and increase allopurino l Uncontroll ed type 2 diabetes mellitus 770791995 E11.65 patient is on Farxiga and tolerating it. Recheck hemoglobin A1c in 2 months. [id number] Faisal Collins MD [address] [place] [address] 01/07/2024 07:47:20 01/08/2024 07:02:31 Screening for malignant neoplasm of colon 666568584 Z12.11 Patient has had a recent negative Cologuard. He has not due for repeat until 2025. Adult heal th examination 840680584 Z00.00 Annual wellness visit. I have reviewed the health risk assessment , patient's medical and family history, current providers, vital signs, cognitive function, depression and anxiety answers. Informatio n given. Essential hypertension 16353738 I10 blood pressures at home remain elevated with systolics above 140. We will increase amlodipine to 10 mg daily. Uncontroll ed type 2 diabetes mellitus 192604797 E11.65 Recheck hemoglobin A1c with recent GFR in the low 60s. Continue present meds for now. Hyperlipidemia 61220295 E78.5 LDL last check was 159. We will repeat today. Consider medication . Gout 86346173 M10.9 recheck uric acid level. No flares recently. [id number] Mervin Ware MD [facility] [address] [place] [address] 05/08/2024 09:08:12 05/08/2024 09:57:38 Screening for malignant neoplasm of colon 101954577 Z12.11 2022 cologuard negative Uncontroll ed type 2 diabetes mellitus 079965455 E11.65 take medication s as prescribed awaiting [id number] forced diet and lifestyle changesdai ly foot checkyearl y eye examfollow up every 3 months Chronic ki dney disease stage 3 due to type 2 diabetes mellitus 6873949158 Avoid NSAIDs, stay hydrated, continue Farxiga therapyawa iting lab work Essential hypertension 48884798 I10 blood drawn in the Left AC by Kacie Suggs CMA, patient tolerated well.educa [place] on goal of less than 130/90advi sed low sodium diet, healthy lifestyle including exercise as ablecontin ue current medication regimenER if any symptoms such as chest pain, shortness of breath Mixed hyperlipidemia 267 842724 E78.2 continue statin therapy, will check fasting lab work today Erectile dysfunction 860 842077 F52.21 refill provided understand s risk versus benefit and when to seek emergency care if erection lasting greater than 4 hours Gouty arth ritis of left foot 0376266802 736635 M1A.0720 controlled refill provided Active or passive immunization 107447131 Z23 [id number] GUERITA WOOD NP [address] [place] [address] 09/08/2024 08:50:03 09/08/2024 09:37:39 Cervical radiculopathy 73002714 M54.12 Left shoulder and neck pain with radiculopa thyPatient presents with acute onset left shoulder and neck pain for 3 days following 45 pushups. Pain radiates down left arm with associated weakness and numbness. Reports crackling and popping sounds with head movement. Pain severity ranges from 6-7/10 during the day to 8-9/10 at night. Previous kidney issues limit NSAID use. Tylenol and TENS machine ineffectiv e for pain relief. 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 Clinician suspects possible cervical radiculopa thy due to nerve impingemen t, tiarain g differenti al diagnoses of cervical spine pathology vs. shoulder joint issue.- X-ray of cervical spine and shoulder ordered- Intramuscu lar steroid injection to be administer ed- Prescripti on for muscle relaxants- Tramadol (narcotic pain medication ) prescribed for 3 days- MRI to be ordered, pending insurance approval- Activity modificati on: avoid more than 10 lbs lifting, rest recommende d- Follow-up appointmen t scheduled in 1 week- Patient instructed to go to ER if symptoms worsen [id number] GUERITA WOOD NP [address] [place] [address] 09/15/2024 08:46:28 09/15/2024 09:19:49 Cervical radiculopathy 90829345 M54.12 x-ray reviewed with patient, discussed continued plan for MRI tomorrow with medication , discussed possibilit y of interventi onal pain management to help but we can wait for his MRI results reports he has had weight loss over the past 2 weeks, has not been in the gym, reports he has had a decreased appetite with the tramadol and baclofen therapy. 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, understand s risk versus benefit [id number] GUERITA WOOD NP [facility] [address] [facility] [place] [address] 10/06/2024 09:05:32 10/06/2024 12:07:38 Chronic kidney disease stage 3 due to type 2 diabetes mellitus 2994285155 Avoid NSAIDs, stay hydrated, continue Farxiga therapyawa iting lab work Uncontroll ed type 2 diabetes mellitus 869080949 E11.65 take medication s as prescribed awaiting [id number] forced diet and lifestyle changesdai ly foot checkyearl y eye examfollow up every 3 months Essential hypertension 70949574 I10 educated on goal of less than 130/90; meeting goal 125/82advi sed low sodium diet, healthy lifestyle including exercise as ablecontin ue current medication regimen Amlodipine , lisinopril -HCTZER if any symptoms such as chest pain, shortness of breath Cervical spondylosis 387 218174 M47.812 has been six days without pain, continue with physical therapy, is establishe d with Dr. gina carter pain management now also with can contact Mixed hyperlipidemia 267 932884 E78.2 continue statin therapy, will check fasting lab work todayconsi berry decreasing his atorvastat in therapy, pending lab work [id number] PATRIC AVILA DO [facility]- [address] [place] [address] 09/21/2024 13:42:46 09/21/2024 14:12:42 Stenosis of spinal canal due to intervertebral disc 842382387 M99.51 Cervical spondylosis 387 223370 M47.812 Cervical radiculopathy 04646004 M54.12 Ossificati on of posterior longitudinal ligament 86246356 M48.8X2 [id number] GUERITA WOOD NP [facility] [address] [place] [address] 01/15/2025 08:03:16 01/15/2025 12:59:59 Chronic kidney disease stage 3 due to type 2 diabetes mellitus 6739039522 Avoid NSAIDs, stay hydrated, continue Farxiga therapyawa iting lab work Essential hypertension 62159750 I10 educated on goal of less than 130/90advi sed low sodium diet, healthy lifestyle including exercise as ablecontin ue current medication regimenER if any symptoms such as chest pain, shortness of breath Uncontroll ed type 2 diabetes mellitus 240647213 E11.65 take medication s as prescribed awaiting hgba1c Previous hemoglobin A1c 6.6 in inforced diet and lifestyle changesdai ly foot checkyearl y eye examfollow up every 3 months Cervical spondylosis 387 474274 M47.22 [id number] has follow-up with pain management on January 19, recommend discussing what his other options may be due to his concerns with having surgery, he is poor candidate for NSAIDs due to his kidney function, will send and short term supply of tramadol until he sees pain management next week. Discussed benefit of duloxetine that may help some with chronic pain. [id number] GUERITA WOOD NP [facility] [address] [place] [address] 10/08/2024 08:17:15 10/08/2024 09:38:37 Essential hypertension 51181603 I10 educated on goal of less than 130/90advi sed low sodium diet, healthy lifestyle including exercise as ablecontin ue current medication regimenER if any symptoms such as chest pain, shortness of breath [id number] PATRIC AVILA DO [facility]- [place] [address] [place] [address] 01/19/2025 12:41:53 01/19/2025 13:40:39 Stenosis of spinal canal due to intervertebral disc 426380277 M99.51 Cervical spondylosis 387 566211 M47.812 Cervical radiculopathy 91406345 M54.12 Ossificati on of posterior longitudinal ligament 72473824 M48.8X2 Chronic ki dney disease stage 3 538026350 N18.30 [id number] PATRIC AVILA DO [facility]- [place] [address] [place] [address] 02/02/2025 07:47:55 02/02/2025 08:36:35 Stenosis of spinal canal due to intervertebral disc 851665568 M99.51 Cervical spondylosis 387 219177 M47.812 Ossificati on of posterior longitudinal ligament 06185717 M48.8X2 Chronic ki dney disease stage 3 755996369 N18.30 Lumbar spondylosis 10576 0009 M47.896 Myofascial pain 11069992 9 M79.18 917439 [id number] PATRIC AVILA DO [facility]- [address] [place] [address] 02/11/2025 08:40:05 02/11/2025 09:18:00 Stenosis of spinal canal due to intervertebral disc 863514943 M99.51 Ossificati on of posterior longitudinal ligament 47007276 M48.8X2 Chronic ki dney disease stage 3 155262762 N18.30 Lumbar spondylosis 62634 0009 M47.896 Myofascial pain 66356105 9 M79.18 889642 Compressio n fracture of lumbar spine 654184961 S32.040D 0351268460 [id number] PATRIC AVILA DO [facility]- [address] [place] [address] 03/02/2025 09:41:46 03/02/2025 10:12:15 Stenosis of spinal canal due to intervertebral disc 265639072 M99.51 Ossificati on of posterior longitudinal ligament 42940519 M48.8X2 Chronic ki dney disease stage 3 006220010 N18.30 Lumbar spondylosis 15614 0009 M47.896 Compressio n fracture of lumbar spine 615203646 S32.040D 6646057257 [id number] NERIS RAY PA-C [facility]- [address] [place] [address] 03/18/2025 08:47:10 03/18/2025 09:42:48 Stenosis of spinal canal due to intervertebral disc 442772873 M99.51 Ossificati on of posterior longitudinal ligament 04392038 M48.8X2 Chronic ki dney disease stage 3 286153086 N18.30 Lumbar spondylosis 34187 0009 M47.896 - The patient is scheduled on 03/22/25 for the second bilateral lumbar medial branch block at L1-L3. Compressio n fracture of lumbar spine 140425409 S32.040D 3332813295 Spasm 25414487 M62.838 35460 - Refill Baclofen 10 mg Q8 hours prn Pain of le ft shoulder region 1049688691 M25.512 84842300 Neck pain 89609866 M54.2 09840 - I have reviewed the cervical x-ray (08/2024), which revealed moderate degenerati ve disc disease; disc space narrowing at C5-C6.- I have reviewed the cervical MRI (08/2024), which revealed severe degenerati ve disc disease; severe posterior longitudin al ligament thickening ; severe spinal cord narrowing from C3-C5. Lumbago with sciatica 20 7476510 M54.40 68670594 - I have reviewed the lumbar x-ray (01/2025), which revealed severe degenerati ve disc disease; facet hypertroph y; disc space narrowing from L1-S1; possible L4 and L5 vertebral body compressio n.- If pain worsens, I will likely order a lumbar MRI. Subacromia l bursitis of left shoulder 8858683357 626138 M75.52 42127599 - The patient complains of left shoulder [...] clinic today. Pain in th oracic spine 264591645 M54.6 09713 - I have reviewed the thoracic x-ray (01/2025), which revealed spondylosi s; degenerati ve disc disease. Long-term current use of opiate analgesic drug 5493148403 87109 Z79.891 185961 - The patient takes Hydrocodon e/APAP 5-325 [...] on both safety and efficacy. Cervical radiculopathy 82085884 M54.2 M54.12 330224 - I may order an EMG/NCS of the RUE to gain further insight into etiology/p athology. Spinal damian nosis in cervical region 76716474 M99.51 - The patient is S/P (01/2025) cervical epidural, which was successful in decreasing radicular neck pain by greater than 50%. [id number] RAFAEL CERNA PA-C [facility]- [address] [place] [address] 03/29/2025 08:08:48 03/29/2025 09:02:26 Stenosis of spinal canal due to intervertebral disc 769656842 M99.51 Ossificati on of posterior longitudinal ligament 28330946 M48.8X2 Chronic ki dney disease stage 3 487422904 N18.30 Lumbar spondylosis 67166 0009 M47.896 - MRI Lumbar spine showing [...] RFA. Compressio n fracture of lumbar spine 032712296 S32.040D 9797526078 Spasm 51729635 M62.838 86754 - Continue PO Baclofen 10 mg Q8 hours prn Pain of le ft shoulder region 2766204218 M25.512 83492215 Neck pain 02915526 M54.2 26133 - I have reviewed the cervical x-ray (08/2024), which revealed moderate degenerati ve disc disease; disc space narrowing at C5-C6.- I have reviewed the cervical MRI (08/2024), which revealed severe degenerati ve disc disease; severe posterior longitudin al ligament thickening ; severe spinal cord narrowing from C3-C5. Lumbago with sciatica 20 0546884 M54.40 48378291 - I have reviewed the lumbar x-ray (01/2025), which revealed severe degenerati ve disc disease; facet hypertroph y; disc space narrowing from L1-S1; possible L4 and L5 vertebral body compressio n.- If pain worsens, I will likely order a lumbar MRI. Subacromia l bursitis of left shoulder 2260791355 015593 M75.52 43840152 - The patient complains of left shoulder [...] improved ROM. Pain in th oracic spine 503383698 M54.6 15926 - I have reviewed the thoracic x-ray (01/2025), which revealed spondylosi s; degenerati ve disc disease. Long-term current use of opiate analgesic drug 7225702610 81048 Z79.891 955430 - The patient takes Hydrocodon e/APAP 5-325 [...] informed the patient that the [facility] will be to incorporat e a multi-moda l approach to pain management , which may consist of conservati ve, pharmacolo gic, and interventi onal approaches , ultimately decreasing pain and increasing function with focus on both safety and efficacy. Cervical radiculopathy 11391706 M54.2 M54.12 095198 - I may order an EMG/NCS of the RUE to gain further insight into etiology/p athology. Spinal damian nosis in cervical region 90196014 M99.51 - The patient is S/P (01/2025) cervical epidural, which was successful in decreasing radicular neck pain by greater than 50%. 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 The procedure will be fluoroscop y-guided. Compressio n fracture of lumbar spine 713167655 S32.040D 2409401050 Spasm 51630262 M62.838 62358 - Refill Baclofen 10 mg Q8 hours prn Pain of le ft shoulder region 4993540786 M25.512 59486531 - The previous complaint of left shoulder pain has resolved. Neck pain 60472556 M54.2 75040 - I have reviewed the cervical x-ray (08/2024), which revealed moderate degenerati ve disc disease; disc space narrowing at C5-C6.- I have reviewed the cervical MRI (08/2024), which revealed severe degenerati ve disc disease; severe posterior longitudin al ligament thickening ; severe spinal cord narrowing from C3-C5. Lumbago with sciatica 20 5650357 M54.40 64490593 - I have reviewed the lumbar x-ray (01/2025), which revealed severe degenerati ve disc disease; facet hypertroph y; disc space narrowing from L1-S1; possible L4 and L5 vertebral body compressio n.- I have reviewed the lumbar MRI, which revealed multilevel degenerati ve chnges; facet arthropath y. Subacromia l bursitis of left shoulder 3523836454 615146 M75.52 96824078 - The patient is S/P (03/18/25) left subacromia l bursa injection, which was successful in decreasing left shoulder pain by nearly 100%. Pain in th oracic spine 602258891 M54.6 76000 - I have reviewed the thoracic x-ray (01/2025), which revealed spondylosi s; degenerati ve disc disease. Long-term current use of opiate analgesic drug 0978270152 95655 Z79.891 041643 - The patient takes Hydrocodon e/APAP 5-325 [...] of Acetaminop hen use too. Cervical radiculopathy 69533358 M54.2 M54.12 391166 - I may order an EMG/NCS of the RUE to gain further insight into etiology/p athology. Spinal damian nosis in cervical region 49462679 M99.51 - The patient is S/P (01/2025) cervical epidural, which was successful in decreasing radicular neck pain by greater than 50%. Myofascial pain 17415843 9 M79.18 640317 - The patient complains of low back pain described as tightness/ spasm, which was exacerbate d recently.- In effort to reduce inflammati on, I will prescribe a Medrol dose pack. [id number] GUERITA WOOD NP [facility]- [facility] [address] [place] [address] 05/25/2025 10:10:42 05/26/2025 07:35:52 Essential hypertension 06117335 I10 educated on goal of less than 130/90advi sed low sodium diet, healthy lifestyle including exercise as ablecontin ue current medication regimenER if any symptoms such as chest pain, shortness of breath Uncontroll ed type 2 diabetes mellitus 979694997 E11.65 take medication s as prescribed awaiting hgba1c Previous hemoglobin A1c 6.2 in Mayreinfor amanda diet and lifestyle changesdai ly foot checkyearl y eye examfollow up every 3 months Chronic ki dney disease stage 3 due to type 2 diabetes mellitus 2431431417 05 E11.22 Avoid NSAIDs, stay hydrated, continue Farxiga therapyawa iting lab work Mixed hyperlipidemia 267 672441 E78.2 37145 continue statin therapy, will check fasting lab work todayconsi berry decreasing his atorvastat in therapy, pending lab work Screening for malignant neoplasm of prostate 192636941 Z12.5 235516 Seasonal allergy 1059337 04 J30.2 72264 A prescripti on for Flonase nasal spray will be sent to [facility] to address environmen judi allergy symptoms. The patient was educated on proper administra tion technique to ensure effective relief. Cervical spondylosis 387 847058 M47.22 The patient will continue duloxetine at 30 mg daily as it is effectivel y managing depression and nerve pain. 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 Subacromia l bursitis of left shoulder 9600509281 815238 M75.52 79915081 Long-term current use of opiate analgesic drug 8378560016 40793 Z79.891 735223 Myofascial pain 16138663 9 M79.18 759775 Health Concerns Section Related Observation LastModified by Organization Detai ls LastModified Time None Recorded Concern Status LastModified by Organization Details LastModified Time None Recorded Advance Directives Directive N: Payers Insurance Date Sequence Insurance Name Policy Number Policy Freeman Covered Member ID Freeman Member ID Guarantor Name 05/22/2025 2 [place] [employer] - FFS/TRADITIO NAL Patric Irizarry [id number] Patric Irizarry 05/22/2025 1 [facility] (MEDICARE REPLACEMENT/ ADVANTAGE - HMO) Patric Irizarry [id number] Patric Irizarry Notes Date Note Type Note Provider Name and Address Organization Details Recorded Time 03/18/2025 text/html 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 The patient has a PMH of CKD. The patient presents to the clinic today for a medication refill. The patient states that the current medication regimen is effective and well-tolerable, thereby allowing them to remain functional. The patient states that he is scheduled on 03/22/25 for the second bilateral lumbar medial branch block at L1-L3. The patient primarily complains of left shoulder pain, which worsens with abduction. Today the pain level is a 5/10, but fluctuates higher (6 or more). Functional Goals of Treatment: Reduce the pain level by 50% or more and restore function/mobility/q uality of life. 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 The patient has a PMH of CKD. Patient presents to the clinic today for follow up S/p BLMBB L1-L3 (2nd) on 03/22/25. Patient states he received significant benefit of >80% reduction in pain for 10 hours following his second block. Shortly after that time period his low back pain returned and worsens with walking or standing for prolonged time periods. Patient is also S/p Left subacromial injection during his last clinic visit which resolved his Left shoulder pain. He now has improved ROM. Today his pain level is 3/10 but intensifies to 8/10 with movement. 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 Today the pain level is a 03/28. 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 Today the pain level is a 08/28. NERIS RAY PA-C [address] [place] [address], [phone], [facility] [place] 05/17/2025 07:49:54 05/25/2025 text/html ROS as noted in the HPI Patric Irizarry is a 69-year-old male who presents for a follow-up visit. He reports undergoing an ablation procedure at the pain clinic approximately three weeks ago, which has been gradually improving his symptoms. He has not experienced flare-ups since the procedure and has been able to reduce his use of hydrocodone, taking it only as needed, with no doses required in the past two days. He previously experienced twitching with tramadol, which was discontinued. He is currently prescribed duloxetine at 30 mg daily and is considering a dose reduction to 20 mg to assess the impact of the ablation on his symptoms. However, after discussion, he decided to maintain the current dose of 30 mg daily as it is effectively managing his depression and nerve pain. He recently sent off a Cologuard test and inquired about a blood test for colon screening, but was informed that the Cologuard test is more sensitive. He is scheduled for routine blood work today, including prostate evaluation. He reports no falls. normal bowel and urinary function. He has been experiencing allergy symptoms due to environmental factors, such as mold, and is considering using Flonase nasal spray for symptom relief. He requested a prescription for Flonase due to the high cost of [id number] options. GUERITA WOOD NP [address] [place] [address], [phone], [facility] [place] 05/25/2025 13:09:33
--- OUTSIDE RECORDS SUMMARY | 2025-06-04 16:26 | XMS_ITS | Clinical Summary ---
[facility] Address [address] [place] [address] Care Team Providers Care County Judge Name Role Phone Francisco Bonilla MD Primary Care Provider [phone] Allergies No known active allergies Medications allopurinol (ZYLOPRIM) 100 MG tabletIndications :Elevated uric acid in blood Take 0.5 tablets by mouth Daily. 15 tablet 5 3 Active lisinopril-hydroc hlorothiazide (PRINZIDE,ZESTORE TIC) 20-12.5 MG per tabletIndications :Essential hypertension TAKE 2 TABLETS BY MOUTH DAILY 180 tablet 1 4 Active Active Problems Problem Noted Date Diagnosed Date Pure hypercholesterolemia 01/04/2023 Essential hypertension 10/05/2022 Immunizations Immunization Administration Dates Next Due COVID-19 (FRANDY) 10/28/2020 COVID-19 (MODERNA) 12YRS+ (SPIKEVAX) 07/03/2023 COVID-19 (MODERNA) 1st,2nd,3 rd Dose Monovalent 03/08/2022,10/17/2021,04/26/2021,03/28 COVID-19 (MODERNA) BIVALENT 12+YRS 03/21/2023, Fluad Quad 65+ 06/25/2023,06/14/2021 Fluzone (or Fluarix & Flulav al for VFC) >6mos 05/03/2020 Fluzone High-Dose 65+yrs 05/25/2022 Hep A / Hep B 10/05/2022 Hepatitis B Adult/Adolescent IM 05/16/2023,01/04 Influenza, Unspecified 05/03/2020 Pneumococcal Conjugate 20-Va lent (PCV20) 10/05/2022 Pneumococcal Polysaccharide (PPSV23) 07/21/2021 Shingrix 02/02/2022,11/10/2021 Tdap 02/18/2022 Family History Medical History Relation Name Comments Hypertension Mother Cm Kinsey Diabetes Sister Unique irizarry Relation Name Status Comments Father Alive Mother Cm Kinsey Alive Sister Unique irizarry Alive Unknown Social History Tobacco Use Types Packs/Day Years Used Date Smoking Tobacco: Former Cigarettes 1 25 0 08/24/1979 - 08/24/2004 Smokeless Tobacco: Never Alcohol Use Standard Drinks/Week Comments Not Currently 5 (1 standard drink = 0.6 oz pur e alcohol) PHQ-2 Answer Date Recorded Retired PHQ-9: Brief Depression Severity Measure Score 0 10/05/2022 Abuse Screen Answer Date Recorded Unsafe at Home or Work/School Not on file Feels Threatened by Someone? Not on file Does Anyone Keep You from Co ntacting Others or Doint Things Outside the Home? Not on file 05/31/2023 Physical Sign of Abuse Present Not on file 1 Housing Stability Answer Date Recorded Current Living Arrangements Not on file 05/19 Potentially Unsafe Housing Conditions Not on philipp e 05/31/2023 Family and Community Support Answer Kervin e Recorded Help with Day-to-Day Activities Not on file 05/31/2023 Lonely or Isolated Not on file 05/31/2023 Employment Answer Date Recorded Do you want help finding or keeping work or a alexia b? Not on file 05/31/2023 Disabilities Answer Date Recorded Concentrating, Remembering, or Making Decisions Difficulty Not on file 05/31/2023 Doing Errands Independently Difficulty Not on fi le 05/31/2023 Education Answer Date Recorded Help with school or training? Not on file Preferred Language Not on file 05/31/2023 PHQ-2 Answer Date Recorded Retired PHQ-9: Brief Depression Severity Measure Score 0 10/05/2022 Sex and Gender Information Value Date Recorded Sex Assigned at Not on file Legal Sex Male 10:28 AM EDT Gender Identity Not on file Sexual Orientation Not on file Last Filed Vital Signs Vital Sign Reading Time Taken Comments Blood Pressure 150/90 07/08/2023 9:13 AM EST Pulse 70 07/08/2023 8:35 AM EST Temperature 36.7 C (98.1 F) 07/08/2023 8:35 AM EST Respiratory Rate 18 07/08/2023 8:35 AM EST Oxygen Saturation 96% 05/16/2023 12:11 PM EDT Inhaled Oxygen Concentration - - Weight 107 kg (236 lb) 07/08/2023 8:35 AM EST Height 182.9 cm (6') 07/08/2023 8:35 AM EST Body Mass Index 32.01 07/08/2023 8:35 AM EST Plan of Treatment Health Maintenance Due Date Last Done Comments COLON CANCER SCREENING 5 YEA R SIGMOIDOSCOPY [address] COLONOGRAPHY 2000 FECAL OCCULT BLOOD TEST 2000 FIT Testing (1 year) 2000 AAA SCREEN ONCE 2020 ANNUAL WELLNESS VISIT 10/05/2023 10/05/2022, 021 LIPID PANEL 01/05/2024 01/04/2023, 01/18, 07/21/2021, Additional history exists COLOGUARD 03/06/2025 03/06/2022, 02/16, 01/17/2019 COLORECTAL CANCER SCREENING 03/06/2025 INFLUENZA VACCINE 03/19/2025 06/25/2023, , 06/14/2021, Additional history exists COVID-19 Vaccine (2024-2 6 season) 2025 07/03/2023, 03/21/2023, 05/19/2022, Additional history exists TDAP/TD VACCINES (2 - Td or Tdap) 02/19/2032 022 LUNG CANCER SCREENING Discontinued 01/18/2021 ZOSTER VACCINE Completed 02/02/2022, 11/10/2021 HEPATITIS C SCREENING Completed 10/05/2022 , 07/21/2021, 07/21/2021 Pneumococcal Vaccine 50+ Completed 10/05/2022, 1210/2020 Hepatitis B Completed 05/16/2023, 12/17, 10/05/2022 Procedures Procedure Name Priority Date/Time Associated Diagnosis Comments LIPID PANEL W/ CHOL/HDL RATIO Routine 01/04/2023 9:23 AM EDT Pure hypercholesterolemia COLOGUARD Routine 03/06/2022 5:20 AM EDT Colon cancer screening HCV ANTIBODY RFX TO QNT PCR Routine 07/21/2021 2:38 PM EST Need for hepatitis C screening test Hepatitis C virus infection without hepatic coma, unspecified chronicity CT CHEST WO CONTRAST DIAGNOSTIC Routine 01/18/2021 8:44 AM EDT Pulmonary nodule from Last 3 Months or Most Recently Relevant to Health Maintenance Results * (ABNORMAL) Lipid Panel With / Chol / HDL Ratio (01/04/2023 9:23 AM EDT) Total Cholesterol 183 0 - 200 mg/dL [facility] Comment: Cholesterol Reference Ranges (U.S. Department of Health and Human Services ATP III Classifications) Desirable <200 mg/dL Borderline High 200-239 mg/dL High Risk >240 mg/dL Triglyceride Reference Ranges (U.S. Department of Health and Human Services ATP III Classifications) Normal <150 mg/dL Borderline High 150-199 mg/dL High 200-499 mg/dL Very High >500 mg/dL HDL Reference Ranges (U.S. Department of Health and Human Services ATP III Classifications) Low <40 mg/dl (major risk factor for CHD) High >60 mg/dl ('negative' risk factor for CHD) LDL Reference Ranges (U.S. Department of Health and Human Services ATP III Classifications) Optimal <100 mg/dL Near Optimal 100-129 mg/dL Borderline High 130-159 mg/dL High 160-189 mg/dL Very High >189 mg/dL Triglycerides 106 0 - 150 mg/dL [facility] HDL Cholesterol 40 40 - 60 mg/dL [facility] VLDL Cholesterol Bishop 19 5 - 40 mg/dL [facility] LDL Chol Calc (NIH) 124(H) 0 - 100 mg/dL [facility] Chol/HDL Ratio 4.58 [facility] Blood 01/04/2023 9:23 AM EDT 01/04/2023 Narrative [facility] ([facility]) - 01/04/2023 8:08 PM EDT Performed at: [address] [place] [address] [place] [id number] Diesel Machinist: Jaswinder Mansfield MD, Phone: [phone] Patient Fasting: Y us Francisco Bonilla MD LAB BLOOD ORDERABLES Final Resu lt [facility] ([facility]) [address] [place] [address], [facility] [address] [place] [address], * Cologuard - Stool, Per Rectum (03/06/2022 5:20 AM EDT) [facility] Cologuard Negative Negative 03/10/2022 2:04 PM EDT [facility] (CLIA #:[id number]) Comment: NEGATIVE TEST RESULT. A negative Cologuard result indicates a low likelihood that a colorectal cancer (CRC) or advanced adenoma (adenomatous polyps with more advanced pre-malignant features) is present. The chance that a person with a negative Cologuard test has a colorectal cancer is less than 1 in 1500 (negative predictive value >99.9%) or has an advanced adenoma is less than 5.3% (negative predictive value 94.7%). These data are based on a prospective cross-sectional study of 10,000 individuals at average risk for colorectal cancer who were screened with both Cologuard and colonoscopy. (Neela Cedeno al, N Engl J Med 2014;370(14):2349-3275) The normal value (reference range) for this assay is negative. COLOGUARD RE-SCREENING RECOMMENDATION: Periodic colorectal cancer screening is an important part of preventive healthcare for asymptomatic individuals at average risk for colorectal cancer. Following a negative Cologuard result, the [place] [employer] and U.S. Multi-Society Task Force screening guidelines recommend a Cologuard re-screening interval of 3 years. References: [place] [employer] Guideline for Colorectal Cancer Screening: https://www.cancer.org/cancer/bshtd-ldujrf-rmyfxs/bdvdbfhrs-cqbbkymsh-clxdxll/ac s-rec ommendations.html.; Francis DK, Isabella CR, Sameer PlasenciaK, Colorectal Cancer Screening: Recommendations for Physicians and Patients from the U.S. Multi-Society Task Force on Colorectal Cancer Screening , Am J Gastroenterology 2017; 112:0428-1535. TEST DESCRIPTION: Composite algorithmic analysis of stool DNA-biomarkers with hemoglobin immunoassay. Quantitative values of individual biomarkers are not reportable and are not associated with individual biomarker result reference ranges. Cologuard is intended for colorectal cancer screening of adults of either sex, 45 years or older, who are at average-risk for colorectal cancer (CRC). Cologuard has been approved for use by the U.S. FDA. The performance of Cologuard was established in a cross sectional study of average-risk adults aged 50-84. Cologuard performance in patients ages 45 to 49 years was estimated by sub-group analysis of near-age groups. Colonoscopies performed for a positive result may find as the most clinically significant lesion: colorectal cancer [4.0%], advanced adenoma (including sessile serrated polyps greater than or equal to 1cm diameter) [20%] or non- advanced adenoma [31%]; or no colorectal neoplasia [45%]. These estimates are derived from a prospective cross-sectional screening study of 10,000 individuals at average risk for colorectal cancer who were screened with both Cologuard and colonoscopy. (Neela Cedeno al, N Engl J Med 2014;370(14):2454-9218.) Cologuard may produce a false negative or false positive result (no colorectal cancer or precancerous polyp present at colonoscopy follow up). A negative Cologuard test result does not guarantee the absence of CRC or advanced adenoma (pre-cancer). The current Cologuard screening interval is every 3 years. ([place] [employer] and U.S. Multi-Society Task Force). Cologuard performance data in a 10,000 patient pivotal study using colonoscopy as the reference method can be accessed at the following location: www.[employer].GenieBelt/results. Additional description of the Cologuard test process, warnings and precautions can be found at www.[employer]aNext.com. Stool specimen (specimen) Specimen from rectum / Unknown 03/06/2022 5:20 AM EDT 03/07/2022 10:11 PM EDT us Francisco Bonilla MD BODY FLUIDS AND STOOLS ORDERABL ES Final Result Performing Organization Address [facility] Co de Phone Number [facility] (CLIA #:[id number]) [address] [place] [address], * (ABNORMAL) HCV Antibody Rfx To Qnt PCR (07/21/2021 2:38 PM EST) Hepatitis C Ab >11.0(H) 0.0 - 0.9 s/co ratio [facility] Blood 07/21/2021 2:38 PM EST 07/21/2021 Narrative [facility] (AMBULATORY) - 07/24/2021 2:08 PM EST Performed at: [facility] [id number] Diesel Machinist: Franck Pradhan PhD, Phone: [phone] Patient Fasting: Y us Francisco Bonilla MD LAB BLOOD ORDERABLES Final Resu lt Performing Organization Address [facility] de Phone Number [facility] (AMBULATORY) [address] [place] [address], [facility] [address] [place] [address], * CT Chest Without Contrast Diagnostic (01/18/2021 8:44 AM EDT) Anatomical Region Laterality Modality Chest N/A Computed Tomogra phy 01/18/2021 9:15 AM EDT Impressions 01/18/2021 10:34 AM EDT Old healed granulomatous disease seen within the chest. There is no parenchymal consolidation, no pulmonary mass or nodule. No superimposed infectious process. E: 01/18/2021 This report was finalized on 01/18/2021 10:[address] Oliva Hester MD. Narrative 01/18/2021 10:34 AM EDT EXAMINATION: CT CHEST WO CONTRAST, DIAGNOSTIC-01/18/2021: INDICATION: Pulmonary nodule; R91.1-Solitary pulmonary nodule, follow-up pulmonary nodule, smoker. TECHNIQUE: Multiple axial CT imaging was obtained of the chest without the administration of intravenous contrast. The radiation dose reduction device was turned on for each scan per the ALARA (As Low as Reasonably Achievable) protocol. COMPARISON: NONE. FINDINGS: The thyroid is homogeneous. No mediastinal mass or adenopathy. The cardiac chambers are within normal limits. No pericardial effusion. No bulky hilar or axillary lymphadenopathy. Large calcified lymph node identified in the subcarinal region. No bulky hilar or axillary lymphadenopathy. The lung parenchyma reveals nodular scarring at the lung bases. No parenchymal consolidation, pulmonary mass or other nodule identified. The visualized upper abdomen is grossly unremarkable. Degenerative changes seen within the spine. Procedure Note Oliva Hester MD - 01/18/2021 EXAMINATION: CT CHEST WO CONTRAST, DIAGNOSTIC-01/18/2021: INDICATION: Pulmonary nodule; R91.1-Solitary pulmonary nodule, follow-up pulmonary nodule, smoker. TECHNIQUE: Multiple axial CT imaging was obtained of the chest without the administration of intravenous contrast. The radiation dose reduction device was turned on for each scan per the ALARA (As Low as Reasonably Achievable) protocol. COMPARISON: NONE. FINDINGS: The thyroid is homogeneous. No mediastinal mass or adenopathy. The cardiac chambers are within normal limits. No pericardial effusion. No bulky hilar or axillary lymphadenopathy. Large calcified lymph node identified in the subcarinal region. No bulky hilar or axillary lymphadenopathy. The lung parenchyma reveals nodular scarring at the lung bases. No parenchymal consolidation, pulmonary mass or other nodule identified. The visualized upper abdomen is grossly unremarkable. Degenerative changes seen within the spine. IMPRESSION: Old healed granulomatous disease seen within the chest. There is no parenchymal consolidation, no pulmonary mass or nodule. No superimposed infectious process. E: 01/18/2021 This report was finalized on 01/18/2021 10:[address] Oliva Hester MD. Francisco Bonilla MD IMG CT ORDERABLES Final Result from Last 3 Months or Most Recently Relevant to Health Maintenance Insurance MEDICA[place] [employer] MEDICARE ADVANTAGE SNP HMO NON PAR Care Teams County Judge Relationship Specialty Start Date End Date Francisco Bonilla MD [address] [place] [id number] PCP - General Family Medicine 01/09/21
--- OUTSIDE RECORDS SUMMARY | 2025-06-04 16:26 | XMS_ITS | Continuity of Care Document ---
Author Organization [facility] Address [address] [address] Care Team Providers Care Laceworker Name Role Phone EDEN WOOD Primary Care Provider Assessment Encounter Date Assessment Date Assessment LastModified by Organization Details LastModified Time 05/25/2025 05/25/2025 The patient was advised to [...] OV EST 15 2024 08:15A M RAFAEL COUNTS, PA-C Not available Not available Not available OV EST 15 2024 09:45A M RAFAEL CERNA, PA-C Not available Not available Not available Lab magnesium , serum or plasma 2024 025 [facility] (Laboratory), [address] [place], [address], 05/25/2025 14:57:01 vitamin D, 25-hydrox y, total, serum 2024 025 [email or web address] [facility] (Laboratory), [address] [place], [address], 06/01/2025 07:36:18 lipid panel, serum 2024 [facility] (Laboratory), [address] [place], [address], 05/25/2025 14:57:03 PSA, serum or plasma 2024 [facility] (Laboratory), [address] [place], [address], 05/25/2025 14:57:05 HbA1c (hemoglob in A1c), blood 2024 [facility] (Laboratory), [address] [place], [address], 05/25/2025 13:47:13 CBC w/ auto diff 2024 [facility] (Laboratory), [address] [place], [address], 05/25/2025 13:41:44 CMP, serum or plasma 2024 [facility] (Laboratory), [address] [place], [address], 05/25/2025 14:56:57 TSH, serum or plasma 2024 [facility] (Laboratory), [address] [place], [address], 05/25/2025 14:56:59 Referral None recorded. Procedures None recorded. Surgeries None recorded. Imaging None recorded. Medication Orders fluticaso ne propionat e 50 mcg/actua tion nasal spray,galileo pension 2024 [facility] [email or web address], [address], 05/25/2025 13:07:17 duloxetin e 30 mg capsule,d elayed release 2024 [facility] [address] [place], [address], 05/25/2025 13:08:18 Patient TargetsNo targets recorded. Patient InstructionsNo instructions recorded. Reason for Referral None Reported. Results Created Date Observation Date Name Description Value Unit Range Abnormal Flag Note LastModifiedBy Organization Detail LastModifiedTime 05/25/2005/25/2025 CBC AUTO W DIFF WBC 6.8 10 4.5-11 .5 Not Available [facility] (Lab Registration) [address] [place], [address], 05/25/2025 13:41:44 05/25/2005/25/2025 CBC AUTO W DIFF RBC 4.94 10 4.25-5 .57 Not Available [facility] (Lab Registration) [address] [place], [address], 05/25/2025 13:41:44 05/25/2005/25/2025 CBC AUTO W DIFF HGB 16.9 g/dL 13.5-1 7.2 Not Available [facility] (Lab Registration) [address] [place], [address], 05/25/2025 13:41:44 05/25/2005/25/2025 CBC AUTO W DIFF HCT 48.6 % 42.0-5 2.0 Not Available [facility] (Lab Registration) [address] [place], [address], 05/25/2025 13:41:44 05/25/2005/25/2025 CBC AUTO W DIFF MCV 98.4 fL 80-95 high Not Available [facility] (Lab Registration) [address] [place], [address], 05/25/2025 13:41:44 05/25/2005/25/2025 CBC AUTO W DIFF MCH 34.2 pg 27.0-3 4.0 high Not Available [facility] (Lab Registration) [address] [place], [address], 05/25/2025 13:41:44 05/25/20 25 05/25/2025 CBC AUTO W DIFF MCHC 34.8 g/dL 32.0-3 6.0 Not Available [facility] (Lab Registration) [address] [place], [address], 05/25/2025 13:41:44 05/25/20 25 05/25/2025 CBC AUTO W DIFF platelet count 158 10 150-45 0 Not Available [facility] (Lab Registration) [address] [place], [address], 05/25/2025 13:41:44 05/25/2005/25/2025 CBC AUTO W DIFF RDW 13.3 % 12.3-1 5.1 Not Available [facility] (Lab Registration) [address] [place], [address], 05/25/2025 13:41:44 05/25/2005/25/2025 CBC AUTO W DIFF MPV 9.2 fL 7.4-10 .4 Not Available [facility] (Lab Registration) [address] [place], [address], 05/25/2025 13:41:44 05/25/20 25 05/25/2025 CBC AUTO W DIFF granulocyte% 47.3 % 40-75 Not Available [facility] (Lab Registration) [address] [place], [address], 05/25/2025 13:41:44 05/25/2005/25/2025 CBC AUTO W DIFF lymphocyte% 39.9 % 15-57 Not Available [facility] (Lab Registration) [address] [place], [address], 05/25/2025 13:41:44 05/25/20 25 05/25/2025 CBC AUTO W DIFF monocyte% 10.1 % 4.0-12 .0 Not Available [facility] (Lab Registration) [address] [place], [address], 05/25/2025 13:41:44 05/25/20 25 05/25/2025 CBC AUTO W DIFF eosinophil% 1.5 % 0.0-4. 0 Not Available [facility] (Lab Registration) [address] [place], [address], 05/25/2025 13:41:44 05/25/2005/25/2025 CBC AUTO W DIFF basophil% 0.3 % 0.0-1. 0 Not Available [facility] (Lab Registration) [address] [place], [address], 05/25/2025 13:41:44 05/25/2005/25/2025 CBC AUTO W DIFF immature granulocytes % 0.9 % 0.0-0. 8 high Not Available [facility] (Lab Registration) [address] [place], [address], 05/25/2025 13:41:44 05/25/2005/25/2025 CBC AUTO W DIFF granulocyte# 3.20 10 Not Available [facility] (Lab Registration) [address] [place], [address], 05/25/2025 13:41:44 05/25/2005/25/2025 CBC AUTO W DIFF lymphocyte# 2.70 10 Not Available [facility] (Lab Registration) [address] [place], [address], 05/25/2025 13:41:44 05/25/2005/25/2025 CBC AUTO W DIFF monocyte# 0.68 10 Not Available [facility] (Lab Registration) [address] [place], [address], 05/25/2025 13:41:44 05/25/2005/25/2025 CBC AUTO W DIFF eosinophil# 0.10 10 Not Available [facility] (Lab Registration) [address] [place], [address], 05/25/2025 13:41:44 05/25/2005/25/2025 CBC AUTO W DIFF basophil# 0.02 10 Not Available [facility] (Lab Registration) [address], [place], [address], 05/25/2025 13:41:44 05/25/2005/25/2025 CBC AUTO W DIFF immature granulocytes # 0.06 10 Not Available [facility] (Lab Registration) [address], [place], [address], 05/25/2025 13:41:44 05/25/2005/25/2025 CBC AUTO W DIFF manual differential NO Not Available [facility] (Lab Registration) [address], [place], [address], 05/25/2025 13:41:44 05/25/2005/25/2025 CBC AUTO W DIFF note Rodney s other graves noted testi ng perfo rmed at: [facility] [address] [place] [address] [phone] Frank rossi MD CLIA: [id number] Not Available [facility] (Lab Registration) [address], [place], [address], 05/25/2025 13:41:44 05/25/2005/25/2025 HEMOG LOBIN A1C glycosylated hemoglobin A1C 6.5 % 4.5-6. 2 high Not Available [facility] (Lab Registration) [address] [place], [address], 05/25/2025 13:47:12 05/25/2005/25/2025 HEMOG LOBIN A1C estimated average glucose 140 mg/dL 82-131 high Not Available [facility] (Lab Registration) [address] [place], [address], 05/25/2025 13:47:12 05/25/2005/25/2025 HEMOG LOBIN A1C note Unles s other graves noted testi ng perfo rmed at: [facility] [address] [address] [phone] Frank rossi MD CLIA: [id number] Not Available [facility] (Lab Registration) [address] [place], [address], 05/25/2025 13:47:12 05/25/2005/25/2025 COMP METAB OLIC PANEL sodium 133 mmol/ L 136-14 5 low Not Available [facility] (Lab Registration) [address] [place], [address], 05/25/2025 14:56:57 05/25/2005/25/2025 COMP METAB OLIC PANEL potassium 4.4 mmol/ L 3.5-5. 1 Not Available [facility] (Lab Registration) [address] [place], [address], 05/25/2025 14:56:57 05/25/2005/25/2025 COMP METAB OLIC PANEL chloride 96 mmol/ L 98-107 low Not Available [facility] (Lab Registration) [address] [place], [address], 05/25/2025 14:56:57 05/25/2005/25/2025 COMP METAB OLIC PANEL carbon dioxide 30 mmol/ L 21-32 Not Available [facility] (Lab Registration) [address] [place], [address], 05/25/2025 14:56:57 05/25/2005/25/2025 COMP METAB OLIC PANEL anion gap 7.0 Not Available [facility] (Lab Registration) [address] [place], [address], 05/25/2025 14:56:57 05/25/20 25 05/25/2025 COMP METAB OLIC PANEL glucose 102 mg/dL 70-110 Not Available [facility] (Lab Registration) [address] [place], [address], 05/25/2025 14:56:57 05/25/2005/25/2025 COMP METAB OLIC PANEL blood urea nitrogen 15 mg/dL 7-18 Not Available [facility] (Lab Registration) [address], [place], [address], 05/25/2025 14:56:57 05/25/2005/25/2025 COMP METAB OLIC PANEL creatinine 1.3 mg/dL 0.8-1. 3 Not Available [facility] (Lab Registration) [address], [place], [address], 05/25/2025 14:56:57 05/25/2005/25/2025 COMP METAB OLIC PANEL BUN/creatini ne ratio 11.5 9-21 Not Available [facility] (Lab Registration) [address], [place], [address], 05/25/2025 14:56:57 05/25/2005/25/2025 COMP METAB OLIC PANEL [...] santo ing kiney funct ion. Not Available [facility] (Lab Registration) [address], [place], [address], 05/25/2025 14:56:57 05/25/2005/25/2025 COMP METAB OLIC PANEL osmolality (calculated) 278 mOsm/ kg 275-30 1 OSMOL ALITY IS A CALCU LATIO N UTILI ZING THE SERUM /PLAS MA SODIU M, GLUCO SE AND UREA NITRO GEN (BUN) LEVEL S. FOR THE MOST ACCUR ATE RESUL T A MEASU RED SERUM OSMOL ALITY IS NII FARRELL. Not Available [facility] (Lab Registration) [address], [place], [address], 05/25/2025 14:56:57 05/25/2005/25/2025 COMP METAB OLIC PANEL total protein 7.3 g/dL 6.4-8. 2 Not Available [facility] (Lab Registration) [address] [place], [address], 05/25/2025 14:56:57 05/25/2005/25/2025 COMP METAB OLIC PANEL albumin 3.9 g/dL 3.4-5. 0 Not Available [facility] (Lab Registration) [address], [place], [address], 05/25/2025 14:56:57 05/25/2005/25/2025 COMP METAB OLIC PANEL calcium 9.6 mg/dL 8.5-10 .1 Not Available [facility] (Lab Registration) [address] [place], [address], 05/25/2025 14:56:57 05/25/2005/25/2025 COMP METAB OLIC PANEL corrected calcium 9.7 mg/dL 8.5-10 .1 Not Available [facility] (Lab Registration) [address] [place], [address], 05/25/2025 14:56:57 05/25/2005/25/2025 COMP METAB OLIC PANEL bilirubin total 1.1 mg/dL 0.4-1. 5 Not Available [facility] (Lab Registration) [address] [place], [address], 05/25/2025 14:56:57 05/25/2005/25/2025 COMP METAB OLIC PANEL AST (SGOT) 44 U/L 15-37 high Not Available [facility] (Lab Registration) [address] [place], [address], 05/25/2025 14:56:57 05/25/2005/25/2025 COMP METAB OLIC PANEL ALT (SGPT) 93 U/L 12-78 high Not Available [facility] (Lab Registration) [address], [place], [address], 05/25/2025 14:56:57 05/25/2005/25/2025 COMP METAB OLIC PANEL alk phosphatase 106 U/L Not Available [facility] (Lab Registration) [address] [place], [address], 05/25/2025 14:56:57 05/25/2005/25/2025 COMP METAB OLIC PANEL note Unles s other graves noted testi ng perfo rmed at: [facility] [address] [place] [address] [phone] Frank rossi MD CLIA: [id number] Not Available [facility] (Lab Registration) [address] [place], [address], 05/25/2025 14:56:57 05/25/2005/25/2025 THYRO ID STIMU LATIN G HORMO NE thyroid stimulating hormone 2.94 mIU/m L 0.34-4 .80 Not Available [facility] (Lab Registration) [address] [place], [address], 05/25/2025 14:56:59 05/25/2005/25/2025 THYRO ID STIMU LATIN G HORMO NE note Unles s other graves noted testi ng perfo rmed at: [facility] [address] [place] [address] [phone] Frank rossi MD CLIA: [id number] Not Available [facility] (Lab Registration) [address] [place], [address], 05/25/2025 14:56:59 05/25/2005/25/2025 MAGNE SIUM magnesium 2.0 mg/dL 1.8-2. 4 Not Available [facility] (Lab Registration) [address], [place], [address], 05/25/2025 14:57:01 05/25/20 25 05/25/2025 MAGNE SIUM note Unles s other graves noted testi ng perfo rmed at: [facility] [address] [place] [address] [phone] Frank rossi MD CLIA: [id number] Not Available [facility] (Lab Registration) [address] , [place], [address], 05/25/2025 14:57:01 05/25/20 25 05/25/2025 VITAM IN D TOTAL (D2+D 3) vitamin D25 (D2+D3) 20.3 NG/mL 30-100 low Not Available [facility] (Lab Registration) [address], [place], [address], 05/25/2025 14:57:02 05/25/2005/25/2025 VITAM IN D TOTAL (D2+D 3) note Unles s other graves noted testi ng perfo rmed at: [facility] [address] [place] [address] [phone] Frank rossi MD CLIA: [id number] Not Available [facility] (Lab Registration) [address], [place], [address], 05/25/2025 14:57:02 05/25/20 25 05/25/2025 LIPID PANEL triglyceride 142 mg/dL 20-200 The Natio nal Arlen stero l Educa tion Progr am (NCEP ) has set the follo wing guide lines for Fasti ng Trigl yceri marycruz: MAYA L: <150 mg/dL BORDE RLINE HIGH: 150 - 199 mg/dL HIGH: 200 - 499 mg/dL VERY HIGH: > or =500 mg/dL Not Available [facility] (Lab Registration) [address] [place], [address], 05/25/2025 14:57:03 05/25/2005/25/2025 LIPID PANEL cholesterol 130 mg/dL 0-200 The Natio nal Arlen st[employer] l Educa tion Progr am (NCEP ) has set the follo wing guide lines for Fasti ng Arlen stero l: GERARDO ABLE: <200 mg/dL BORDE RLINE HIGH: 200 - 239 mg/dL HIGH: > or =240 mg/dL Not Available [facility] (Lab Registration) [address] [place], [address], 05/25/2025 14:57:03 05/25/2005/25/2025 LIPID PANEL HDL cholesterol 45 mg/dL 60- low The Natio nal Arlen [employer] l Educa tion Progr am (NCEP ) has set the follo wing guide lines for Fasti ng HDL Arlen stero l: LOW HDL: <40 mg/dL MAYA L: 40 - 60 mg/dL GERARDO ABLE: >60 mg/dL Not Available [facility] (Lab Registration) [address] [place], [address], 05/25/2025 14:57:03 05/25/2005/25/2025 LIPID PANEL LDL calculated [...] > or = 190 mg/dL Not Available [facility] (Lab Registration) [address] [place], [address], 05/25/2025 14:57:03 05/25/2005/25/2025 LIPID PANEL chol/HDL ratio 3 -5 Not Available [facility] (Lab Registration) [address] [place], [address], 05/25/2025 14:57:03 05/25/20 25 05/25/2025 LIPID PANEL note Unles s other graves noted testi ng perfo rmed at: [facility] [address] [place] [address] [phone] Frank rossi MD CLIA: [id number] Not Available [facility] (Lab Registration) [address] [place], [address], 05/25/2025 14:57:03 05/25/20 25 05/25/2025 PROST ATE SPECI FIC AG (PSA) prostate specific Ag (PSA) 0.53 NG/mL 0.0-4. 0 Not Available [facility] (Lab Registration) [address] [place], [address], 05/25/2025 14:57:05 05/25/20 25 05/25/2025 PROST ATE SPECI FIC AG (PSA) note Unles s other graves noted testi ng perfo rmed at: [facility] [address] [place] [phone] Frank rossi MD CLIA: [id number] Not Available [facility] (Lab Registration) [address] [place], [address], 05/25/2025 14:57:05 05/25/20 25 05/25/2025 MICRO ALBUM IN/CR EATIN INE URINE microalbumin random 5.8 mcg/m L 1.3-17 .0 Not Available [facility] (Lab Registration) [address] [place], [address], 05/25/2025 15:00:30 05/25/20 25 05/25/2025 MICRO ALBUM IN/CR EATIN INE URINE creatinine urine 75.3 mg/dL 30-125 Not Available [facility] (Lab Registration) [address] [place], [address], 05/25/2025 15:00:30 05/25/20 25 05/25/2025 MICRO ALBUM IN/CR EATIN INE URINE microalbumin /creatinine ratio 0.1 ug/mg _crea t 0.0-30 .0 Not Available [facility] (Lab Registration) [address] [place], [address], 05/25/2025 15:00:30 05/25/20 25 05/25/2025 MICRO ALBUM IN/CR EATIN INE URINE note Unles s other graves noted testi ng perfo rmed at: [facility] [address] [place] [address] [phone] Frank rossi MD CLIA: [id number] Not Available [facility] (Lab Registration) [address] [place], [address], 05/25/2025 15:00:30 Result Notes None recorded. Problems Name Problem SNOMED Code Status Onset Date Resolution Date Notes Provider Name and Address Organization Details Recorded Time Essential hypertJackpocket n 98125435 Active 2022 Mikal trevino, [place] - [place] & [place] 4 09:41:05 Chronic kidney disease stage 3 513659407 Active 2022 NERIS RAY PA-C [address] [place] [address], [address] [facility] [place] [facility] & [place] 5 07:48:57 Gout 11767757 Active 2022 Mikal Hernandez null, [place] & [place] 4 09:41:07 Erectile dysfunction 620013725 Active 2022 Mikal Hernandez [place] 4 09:41:02 Chronic kidney disease stage 3 due to type 2 diabetes mellitus 787477412375 Active 2023 Mikal Hernandez null, [place] [facility] [facility] [place] 4 09:41:00 Uncontrolle d type 2 diabetes mellitus 140924784 Active 2023 Mikal Hernandez [place] 4 09:41:10 Hyperlipide carrie 56075770 Active 2023 Mikal Hernandez [place] 5 09:54:31 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 877896063 Active 2024 Mikal Hernandez [place] 5 09:54:39 Cervical spondylosis 182029098 Active 2024 Mikal Hernandez [place] 5 09:54:21 Cervical radiculopat hy 14772925 Active 2024 NERIS RAY PA-C [address] [place] [address], [address] [place] [address] 1, [place] & [place] 5 07:49:15 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 66360016 Active 2024 NERIS RAY PA-C [address] [place] [address], [address] [place] [address] 1, [place] [facility] [place] & [place] 5 07:48:52 Lumbar spondylosis 178615036 Active 2024 PATRIC AVILA [address], [address] [place] [address] 1, [place] 5 08:31:02 Myofascial pain 920770631 Active 2024 PATRIC AVILA [address], [address], [place] & [place] 5 08:33:29 Compression fracture of lumbar spine 986167797 Active 2024 PATRIC AVILA [address], [place], [address], [place] & [place] 5 09:41:10 Claustropho cal 15547766 Active 2024 PATRIC AVILA [address], [address], [place] & [place] 13:02:42 Spinal stenosis in cervical region 56173312 Active 2024 NERIS RAY PA-C [address] [place] [address], [address], [place] & [place] 5 07:47:31 Pain in thoracic spine 915201104 Active 2024 NERIS RAY PA-C [address] [place] [address], [address], [place] & [place] 5 07:47:40 Neck pain 43116413 Active 2024 NERIS RAY PA-C [address] [place] [address], [address], [place] [facility] [place] [facility] & [place] 07:48:01 Problem Notes None recorded. Procedures Surgical History Date Name Laterality Status Provider Name and Address Organization Details Recorded Time 03/18/20 25 Injection Only completed NERIS RAY PA-C [address] [place] [address], [id number], [place] [facility] & [place] 03/18/2025 16:46:47 02/12/20 25 TPI BL,L,R completed Samia Broussard [place] [facility] & [place] 02/11/2025 09:39:28 01/07/20 24 Medicare Annual Wellness Visit Health Risk Assessment completed Mikal Hernandez [place] 01/07/2024 08:04:47 08/19/19 15 Hip Surgery completed [place] Bui [place] [facility] & [place] 08/14/2023 15:45:18 radiofrequency ablation of peripheral nerve using fluoroscopic guidance completed Mikal Hernandez [place] & [place] 05/25/2025 10:31:44 Imaging Results None recorded. Procedure Notes None recorded. Medical Equipment None Reported. Allergies Allergen ID Allergen Name Allergen Category Reaction Reaction Severity Criticality Documentation Date Start Date Code Code System Note Provider Name and Address Organization Details Recorded Time 061424 No known allergy (situatio n) Not available Not available Not available Not available 12/22/2024 14486 [id number] [place] [facility] [place] & [place] 13:33:48 309876 tramadol medicatio n Not available Not available Not available 05/25/2025 39907 RxNorm twitc kurt WOOD NP [address] [facility], [place], [address] [place] [address] - [facility] & [place] 13:05:53 Medications Name Sig Start Date Stop [...] Updated DateTime 5 185.42 cm 29.2 kg/m2 485701. 91 g 97.9 [degF] 99 % 99 % 97 /min 18 /min 127/76 mm[Hg] Mikal Donovanles [facility] & [place] 5 10:30:24 Social History Question Answer Notes LastModified by Organizat ion Details LastModified Time Tobacco Smoking Status Former Smoker [place] Bui [facility], [facility] & [place] 08/14/2023 15:45:18 Do You Have An Advance Directive? No [email or web address] Information not available 08/14/2023 Do You Wear A Helmet When Biking? Yes Information not available 11/05/2023 Are You Blind Or Do You Have Difficulty Seeing? No Information not available 08/14/2023 Is Blood Transfusion Acceptable In An Emergency? No Information not available 11/05/2023 What Is Your Level Of Caffeine Consumption? Occasional Information not available 01/07/2024 In The 14 Days Before Symptom Onset, Have You Had Close Contact With A Laboratory-confir med COVID-19 While That Case Was Ill? No [email or web address] Information not available 11/05/2023 In The 14 Days Before Symptom Onset, Have You Had Close Contact With A Person Who Is Under Investigation For COVID-19 While That Person Was Ill? No Information not available 11/05/2023 Have You Been To An Area Known To Be High Risk For COVID-19? No [email or web address] Information not available 11/05/2023 Are You Deaf Or Do You Have Serious Difficulty Hearing? No [email or web address] Information not available 11/05/2023 What Type Of Diet Are You Following? REGULAR [email or web address] Information not available 11/05/2023 Have You Processed Blood Or Body Fluids From An Ebola Virus Disease Patient Without Appropriate PPE? No [email or web address] Information not available 11/05/2023 Do You Reside In Or Have You Traveled To An Area Where Ebola Virus Transmission Is Active? No [email or web address] Information not available 11/05/2023 Have There Been Any Changes To Your Family Or Social Situation? No [email or web address] Information no t available 11/05/2023 What Is The Fluoride Status Of Your Home? Unknown [email or web address] Information not available 11/05/2023 Are There Any Guns Present In Your Home? No [email or web address] Information not available 11/05/2023 Have You Recently Or Are You Planning To Travel To An Area With Zika Virus? No Information not available 11/05/2023 Do You Use Insect Repellent Routinely? Yes [email or web address] Information not available 11/05/2023 Do You Feel Safe At Home? Yes [email or web address] Information not available 11/05/2023 Do You Have A Medical Power Of Appointment Clerk? No [email or web address] Information not available 11/05/2023 What Was The Date Of Your Most Recent Tobacco Screening? 05/25/2025 [email or web address] Information not available 05/25/2025 Do You Have Any Pets? No Information not available 11/05/2023 Do You Use Your Seat Belt Or Car Seat Routinely? Yes [email or web address] Information not available 11/05/2023 Do You Have Smoke And Carbon Monoxide Detectors In Your Home? No [email or web address] Information not available 11/05/2023 Are You Passively Exposed To Smoke? No Information no t available 11/05/2023 How Much Tobacco Do You Smoke? 1 PPD [email or web address] Information not available 08/14/2023 Do You Use Sunscreen Routinely? Yes [email or web address] Information not available 11/05/2023 Has Tobacco Cessation Counseling Been Provided? Yes Information not available 01/15/2025 On What Date Was Tobacco Cessation Counseling Provided? 05/25/2025 [email or web address] Information not available 05/25/2025 How Many Years Have You Smoked Tobacco? 20 [email or web address] Information not available 08/14/2023 Do You Have Difficulty Walking Or Climbing Stairs? No [email or web address] Information not available 11/05/2023 Are You Currently In School? No [email or web address] Information not available 11/05/2023 Sex: Unknown Functional Status Question Answer Note LastModified by Organizat ion Details LastModified Time Do you use any illicit or recreational drugs? No [email or web address] Information not available 08/14/2023 Do you or have you ever used any other forms of tobacco or nicotine? No [email or web address] Information not available 01/07/2024 What is your level of alcohol consumption? None [email or web address] Information not available 08/14/2023 Are you currently employed? Yes [email or web address] Information not available 11/05/2023 Do you have transportation difficulties? No [email or web address] Information not available 11/05/2023 Are you able to walk independently without assistance or assistive devices? YESWOREST [email or web address] Information not available 11/05/2023 Do you have difficulty doing errands alone? No [email or web address] Information not available 11/05/2023 Are you able to care for yourself independently? Yes [email or web address] Information not available 11/05/2023 Do you have difficulty dressing, bathing, grooming, or toileting? No [email or web address] Information not available 11/05/2023 What is your exercise level? Moderate [email or web address] Information not available 08/14/2023 Mental Status Question Answer Note LastModified by Organizat ion Details LastModified Time Do you feel stressed (tense, restless, nervous, or anxious, or unable to sleep at night)? [id number] [email or web address] Information not available 08/14/2023 Do you have difficulty concentrating, remembering or making decisions? No [email or web address] Information no t available 11/05/2023 Family History Relationship Description Onset Age of this Age Resolved Age Notes LastModified by Organization Details LastModified Time Mother Hypertensive disorder [email or web address] Not available 2023 16:23:09 Sister Diabetes mellitus [email or web address] Not available 2024 10:11:24 Medical History Condition Response Diabetes Y Gout Y Hypertension Y Kidney or Bladder Problems Y High Cholesterol Y Immunizations Vaccine Type Date Status Note Provider Nam e and Address Organization Details Recorded Time zoster recombinant 2 completed Oliva Colon null, [place] - [facility] & [place] 04/28/2025 14:00:22 zoster recombinant 2 completed Oliva Colon null, [place] - [facility] & [place] 04/28/2025 14:00:22 Influenza, high-dose, quadrivalent, PF 2 completed Aye Mears null, [place] - [facility] & [place] 10/20/2023 15:02:37 Influenza, adjuvanted, quadrivalent, PF 1 completed Oliva Colon null, [place] [facility] & [place] 04/28/2025 14:00:22 Influenza, adjuvanted, quadrivalent, PF 3 completed Aye Mears null, [place] - [facility] & [place] 10/20/2023 15:02:37 COVID-19, mRNA, LNP-S, PF, 100 mcg/0.5mL dose or 50 mcg/0.25mL dose 2 completed Oliva Colon null, [place] - [facility] & [place] 04/28/2025 14:00:22 COVID-19, mRNA, LNP-S, PF, 100 mcg/0.5mL dose or 50 mcg/0.25mL dose 2 completed Oliva Colon null, [place] - [facility] & [place] 04/28/2025 14:00:22 COVID-19, mRNA, LNP-S, PF, 100 mcg/0.5mL dose or 50 mcg/0.25mL dose 1 completed Oliva Colon null, [place] - [facility] & [place] 04/28/2025 14:00:22 COVID-19, mRNA, LNP-S, PF, 100 mcg/0.5mL dose or 50 mcg/0.25mL dose 1 completed Oliva Colon null, [place] [facility] & [place] 04/28/2025 14:00:22 COVID-19 vaccine, vector-nr, [id number], PF, 0.5 mL 1 completed Oliva Colon null, [place] - [facility] - [place] & [place] 04/28/2025 14:00:22 Pneumococcal conjugate PCV20, polysaccharide [id number] conjugate, adjuvant, PF 3 completed Oliva Colon null, [place] - [facility] [place] & [place] 04/28/2025 14:00:22 COVID-19, mRNA, LNP-S, bivalent, PF, 50 mcg/0.5 mL or 25mcg/0.25 mL dose 3 completed Aye Mears null, [place] - [facility] [place] & [place] 10/20/2023 15:02:37 COVID-19, mRNA, LNP-S, bivalent, PF, 50 mcg/0.5 mL or 25mcg/0.25 mL dose 2 completed Oliva Colon null, [place] - [facility] [place] & [place] 04/28/2025 14:00:22 COVID-19, mRNA, LNP-S, PF, 50 mcg/0.5 mL 3 completed Aye Mears null, [place] [facility] & [place] 10/20/2023 15:02:37 pneumococcal polysaccharide PPV23 1 completed Oliva Colon null, [place] [facility] [place] & [place] 04/28/2025 14:00:22 Tdap 2 completed Oliva Colon null, [place] [facility] [place] & [place] 04/28/2025 14:00:22 Hep B, adult 3 completed Oliva Colon null, [place] [facility] [place] [facility] [place] 04/28/2025 14:00:22 Hep B, adult 3 completed Oliva Colon null, [place] [facility] [place] [facility] [place] 04/28/2025 14:00:22 Influenza, split virus, quadrivalent, PF 0 completed Oliva Colon null, [place] [facility] [place] [facility] [place] 04/28/2025 14:00:22 Hep A-Hep B 3 completed Oliva Colon null, [place] [facility] [place] [facility] [place] 04/28/2025 14:00:22 COVID-19, mRNA, LNP-S, PF, vinay-sucrose, 30 mcg/0.3 mL 4 completed Oliva Colon null, [place] - [facility] [place] & [place] 04/28/2025 14:00:22 Influenza, high-dose, trivalent, PF 4 completed Oliva Colon null, [place] [facility] [place] & [place] 04/28/2025 14:00:22 COVID-19, mRNA, LNP-S, PF, 50 mcg/0.5 mL 5 completed [facility] 10:12:35 Past Encounters Encounter ID Performer Location Encounter Start Date Encounter Closed Date Diagnosis/Indication Diagnosis SNOMED-CT Code Diagnosis ICD10 Code Diagnosis IMO Codes Diagnosis Note [id number] EDEN WOOD NP [facility] [address] [place] [address] 05/25/2025 10:10:42 05/26/2025 07:35:52 Essential hypertension 29233324 I10 educated on goal of less than 130/90advi sed low sodium diet, healthy lifestyle including exercise as ablecontin ue current medication regimenER if any symptoms such as chest pain, shortness of breath Uncontroll ed type 2 diabetes mellitus 408987263 E11.65 take medication s as prescribed awaiting hgba1c Previous hemoglobin A1c 6.2 in Mayreinfor amanda diet and lifestyle changesdai ly foot checkyearl y eye examfollow up every 3 months Chronic ki dney disease stage 3 due to type 2 diabetes mellitus [id number] 05 E11.22 Avoid NSAIDs, stay hydrated, continue Farxiga therapyawa iting lab work Mixed hyperlipidemia 267 789339 E78.2 49545 continue statin therapy, will check fasting lab work todayconsi berry decreasing his atorvastat in therapy, pending lab work Screening for malignant neoplasm of prostate 777751621 Z12.5 799448 Seasonal allergy 6857761 04 J30.2 67780 A prescripti on for Flonase nasal spray will be sent to [facility] to address environmen judi allergy symptoms. The patient was educated on proper administra tion technique to ensure effective relief. Cervical spondylosis 387 091829 M47.22 The patient will continue duloxetine at 30 mg daily as it is effectivel y managing depression and nerve pain. 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 Subacromia l bursitis of left shoulder [id number] 759492 M75.52 13744131 Long-term current use of opiate analgesic drug 4942592800 35251 Z79.891 220847 Myofascial pain 95998479 9 M79.18 [id number] Health Concerns Section Related Observation LastModified by Organization Detai ls LastModified Time None Recorded Concern Status LastModified by Organization Details LastModified Time None Recorded Payers Encounter Date Sequence Insurance Name Policy Number Policy Freeman Covered Member ID Freeman Member ID Guarantor Name 05/25/2025 1 [employer] (MEDICARE REPLACEMENT/ ADVANTAGE - HMO) Patric Irizarry [id number] Patric Irizarry 05/25/2025 2 [place] [employer] - FFS/TRADITIO NAL Patric Antonella Irizarry [id number] Patric Irizarry Notes Date Note Type Note Provider Name and Address Organization Details Recorded Time 05/25/2025 text/html ROS as noted in the [...] Flonase due to the high cost of [id number]-[id number] options. EDEN WOOD NP [address] [place], [address] [place] 05/25/2025 13:09:33
== END 2025-06-04 23:59 | disposition home or self-care (01) ==
LOC: RAD 16:23
PROVIDERS: PCP Nurse Practitioner Family; Visit Provider Student in an Organized Health Care Education/Training Program
DX: R05.9 Cough, unspecified (principal); Z87.09 Personal history of other diseases of the respiratory system
CPT/HCPCS: 71046